=== PATIENT | female | born 1985 | race African-American/Black ===

== ENCOUNTER → 2016-10-03 | Outpatient (CLI) | payer OTHER, MEDICAID ==
[2016-10-03 14:20] LABS: ABSOLUTE LYMPHOCYTES (AUTO) 2.7 10^3/uL (0.5-4.7); ABSOLUTE MONOCYTES (AUTO) 0.5 10^3/uL (0.1-1.4); ABSOLUTE NEUT (AUTO) 6.8 10^3/uL (1.7-8.2); BASOPHILS % (AUTO) 0.4 % (0-2); EOSINOPHILS % (AUTO) 0.4 % (0-6); HEMATOCRIT 37.6 % (36.0-47.0); HEMOGLOBIN 12.3 g/dL (12.0-15.5); HGB HCT DIFFERENCE -0.7; LYMPHOCYTES % (AUTO) 26.4 % (13-45); MEAN CORPUSCULAR HEMOGLOBIN 26.8 pg (27.0-33.4); MEAN CORPUSCULAR HGB CONC 32.6 g/dL (32.0-36.0); MEAN CORPUSCULAR VOLUME 82 fl (80-97); RED BLOOD COUNT 4.57 10^6/uL (3.72-5.28); RED CELL DISTRIBUTION WIDTH 14.2 % (11.5-14.0); SEGMENTED NEUTROPHILS % (AUTO) 67.8 % (42-78); WHITE BLOOD COUNT 10.1 10^3/uL (4.0-10.5)
[2016-10-03 14:33] LABS: PARTIAL THROMBOPLASTIN TIME 28.5 SEC (23.5-35.8); PROTHROMBIN TIME 14.1 SEC (11.4-15.4)
[2016-10-03 14:45] LABS: ALANINE AMINOTRANSFERASE 26 U/L (9-52); ANION GAP 10 (5-19); ASPARTATE AMINO TRANSFERASE 18 U/L (14-36); BLOOD UREA NITROGEN 5 mg/dL (7-20); CARBON DIOXIDE 25 mmol/L (22-30); CHLORIDE 101 mmol/L (98-107); CREATININE RESULT 0.64 mg/dL (0.52-1.25); GLUCOSE 86 mg/dL (75-110); LDH 386 U/L (313-618); POTASSIUM 4.1 mmol/L (3.6-5.0); SODIUM 135.8 mmol/L (137-145); URIC ACID 5.1 mg/dL (2.5-6.2)
[2016-10-05 11:13] LABS: URINE CREATININE 118.8 mg/dL (16-327)
[2016-10-06 12:30] LABS: PROTEIN TOTAL UR 24HR 236.7 mg/24 hr (30.0-150.0)
== END ==
LOC: OD 12:43
PROVIDERS: ATTEND Nurse Practitioner Women's Health
DX: O10.011 Pre-existing essential hypertension complicating pregnancy, first trimester (principal)
CPT/HCPCS: 36415; 80048; 82570; 83615; 84156; 84450; 84460; 84550; 85025; 85610; 85730

== ENCOUNTER 2016-10-06 04:36 | Emergency (ER) | payer OTHER, MEDICAID ==
[2016-10-06 05:48] LABS: APPEARANCE,URINE SLIGHTLY-CLOUDY; BILIRUBIN,URINE NEGATIVE (NEGATIVE); GLUCOSE, URINE NEGATIVE (NEGATIVE); KETONES,URINE TRACE mg/dL (NEGATIVE); LEUKOCYTE ESTERASE,URINE NEGATIVE (NEGATIVE); NITRITE,URINE NEGATIVE (NEGATIVE); PROTEIN,URINE 100 mg/dL (NEGATIVE); URINE SPECIFIC GRAVITY 1.029; UROBILINOGEN,URINE NEGATIVE mg/dL (<2.0)
[2016-10-06] MEDS ORDERED: PROMETHAZINE HCL 25 MG TABLET PO ONE (06:02)
--- NOTE | 2016-10-06 06:44 | ER Document Report ---
ED General - General Chief Complaint: Nausea/Vomiting Stated Complaint: VOMITING/ Mode of Arrival: Ambulatory Information source: Patient Notes: 30-year-old female 4 para 3 who is 9 weeks presents with complaints of nausea vomiting. Patient notes she took Zofran at home and continues to vomit for the past 2 days. Denies any blood in her vomit, denies any diarrhea. Patient has had multiple similar episodes in the past with her previous pregnancies TRAVEL OUTSIDE OF THE [place] IN LAST 30 DAYS: No - HPI Onset: Yesterday Onset/Duration: Persistent Quality of pain: No pain Severity: Mild Pain Level: Denies Associated symptoms: Nausea, Vomiting Exacerbated by: Denies Relieved by: Denies Similar symptoms previously: Yes Recently seen / treated by doctor: No - Related Data Allergies/Adverse Reactions: hydrocodone bitartrate [From Vicodin] Allergy (Mild, Verified 10/06/16 04:43) VOMITING Past Medical History - Social History Smoking Status: Never Smoker Cigarette use (# per day): No Chew tobacco use (# tins/day): No Smoking Education Provided: No Frequency of alcohol use: None Drug Abuse: None Family History: DM, Hypertension Patient has suicidal ideation: No Patient has homicidal ideation: No - Past Medical History Cardiac Medical History: Reports: Hx Hypertension Denies: Hx Coronary Artery Disease, Hx Heart Attack Pulmonary Medical History: Denies: Hx Asthma, Hx Bronchitis, Hx COPD, Hx Pneumonia Neurological Medical History: Denies: Hx Cerebrovascular Accident, Hx Seizures Renal/ Medical History: Denies: Hx Peritoneal Dialysis Musculoskeltal Medical History: Denies Hx Arthritis Past Surgical History: Reports: Hx Section, Hx Dilation and Curettage. Denies: Hx Hysterectomy - Immunizations Hx Diphtheria, Pertussis, Tetanus Vaccination: Yes Review of Systems - Review of Systems Notes: REVIEW OF SYSTEMS: CONSTITUTIONAL : Denies fever, chills, or sweats. Denies recent illness. EENT: Denies eye, ear, throat, or mouth pain or symptoms. Denies nasal or sinus congestion or discharge. Denies throat, tongue, or mouth swelling or difficulty swallowing. CARDIOVASCULAR: Denies chest pain. Denies palpitations or racing or irregular heart beat. Denies ankle edema. RESPIRATORY: Denies cough, cold, or chest congestion. Denies shortness of breath, difficulty breathing, or wheezing. GASTROINTESTINAL: Admits nausea vomiting GENITOURINARY: Denies difficulty urinating, painful urination, burning, frequency, blood in urine, or discharge. FEMALE GENITOURINARY: Denies vaginal bleeding, heavy or abnormal periods, irregular periods. Denies vaginal discharge or odor. MUSCULOSKELETAL: Denies back or neck pain or stiffness. Denies joint pain or swelling. SKIN: Denies rash, lesions or sores. HEMATOLOGIC : Denies easy bruising or bleeding. LYMPHATIC: Denies swollen, enlarged glands. NEUROLOGICAL: Denies confusion or altered mental status. Denies passing out or loss of consciousness. Denies dizziness or lightheadedness. Denies headache. Denies weakness or paralysis or loss of use of either side. Denies problems with gait or speech. Denies sensory loss, numbness, or tingling. Denies seizures. PSYCHIATRIC: Denies anxiety or stress. Denies depression, suicidal ideation, or homicidal ideation. ALL OTHER SYSTEMS REVIEWED AND NEGATIVE. Dictation was performed using [employer] voice recognition software PHYSICAL EXAMINATION: GENERAL: Well-appearing, well-nourished and in no acute distress. HEAD: Atraumatic, normocephalic. EYES: Pupils equal round and reactive to light, extraocular movements intact, conjunctiva are normal. ENT: Nares patent, oropharynx clear without exudates. Moist mucous membranes. NECK: Normal range of motion, supple without lymphadenopathy LUNGS: Breath sounds clear to auscultation bilaterally and equal. No wheezes rales or rhonchi. HEART: Regular rate and rhythm without murmurs ABDOMEN: Soft, nontender, nondistended abdomen. No guarding, no rebound. No masses appreciated. Female : deferred Musculoskeletal: Normal range of motion, no pitting or edema. No cyanosis. NEUROLOGICAL: Cranial nerves grossly intact. Normal speech, normal gait. Normal sensory, motor exams PSYCH: Normal mood, normal affect. SKIN: Warm, Dry, normal turgor, no rashes or lesions noted. Physical Exam - Vital signs Vitals: Temp Pulse Resp BP Pulse Ox 98.6 F 79 18 163/62 H 100 10/06/16 04:39 10/06/16 04:39 10/06/16 04:39 10/06/16 04:39 10/06/16 04:39 Course - Re-evaluation Re-evalutation: 10/06/16 06:44 Physical examination noted no signs of dehydration, patient does have some protein in her urine with trace ketones. Otherwise she looks quite well. Patient is given Phenergan and will be reevaluated with oral hydration 10/06/16 07:17 Patient notes she has not vomited since receiving Phenergan admits significant relief in symptoms. I will send her home with oral and suppository Patient has follow-up with [facility] next week denies any vaginal bleeding or discharge or abdominal pain After performing a Medical Screening Examination, I estimate there is LOW risk for ACUTE APPENDICITIS, BOWEL OBSTRUCTION, ACUTE CHOLECYSTITIS, PERFORATED DIVERTICULITIS, INCARCERATED HERNIA, PANCREATITIS, PELVIC INFLAMMATORY DISEASE, PERFORATED ULCER, ECTOPIC , or TUBO-OVARIAN ABSCESS, thus I consider the discharge disposition reasonable. Also, there is no evidence or peritonitis , sepsis, or toxicity. The patient and I have discussed the diagnosis and risks , and we agree with discharging home with close follow-up with the understanding that symptoms and presentations can change. We also discussed returning to the Emergency Department immediately if new or worsening symptoms occur. We have discussed the symptoms which are most concerning (e.g., bloody stool, fever, changing or worsening pain, vomiting) that necessitate immediate return. - Vital Signs Vital signs: Temp Pulse Resp BP Pulse Ox 98.6 F 79 18 163/62 H 100 10/06/16 04:41 10/06/16 04:41 10/06/16 04:41 10/06/16 04:41 10/06/16 04:41 - Laboratory Laboratory results interpreted by me: 10/06/16 05:17 Urine Protein 100 H Urine Ketones TRACE H Discharge - Discharge Clinical Impression: Vomiting affecting HTN (hypertension) Qualifiers: Hypertension type: essential hypertension Qualified Code(s): I10 - Essential ( primary) hypertension Condition: Stable Disposition: HOME, SELF-CARE Instructions: Antinausea Medication ([facility]) Prescriptions: Promethazine HCl [Phenergan 25 mg Tablet] 1 - 2 tab PO Q6H PRN #30 tablet PRN Reason: Promethazine HCl 25 mg RC Q8 #20 supp.rect Forms: Elevated Blood Pressure Referrals: HERIBERTO WINTERS MD [Primary Care Provider] - Follow up tomorrow
[2016-10-06 07:29] VITALS: BP 160/60
== END 2016-10-06 07:30 | disposition home or self-care (01) ==
LOC: ER 04:36
DX: O21.9 Vomiting of pregnancy, unspecified (principal); O10.911 Unspecified pre-existing hypertension complicating pregnancy, first trimester; Z3A.09 9 weeks gestation of pregnancy
CPT/HCPCS: 81001; 99283

== ENCOUNTER 2017-03-24 16:10 | Outpatient (CLI) | payer OTHER, MEDICAID ==
[2017-03-24 17:02] LABS: ABSOLUTE LYMPHOCYTES (AUTO) 1.9 10^3/uL (0.5-4.7); ABSOLUTE MONOCYTES (AUTO) 0.3 10^3/uL (0.1-1.4); ABSOLUTE NEUT (AUTO) 5.8 10^3/uL (1.7-8.2); BASOPHILS % (AUTO) 0.2 % (0-2); EOSINOPHILS % (AUTO) 0.2 % (0-6); HEMATOCRIT 33.2 % (36.0-47.0); HEMOGLOBIN 10.9 g/dL (12.0-15.5); HGB HCT DIFFERENCE -0.5; LYMPHOCYTES % (AUTO) 23.4 % (13-45); MEAN CORPUSCULAR HEMOGLOBIN 26.2 pg (27.0-33.4); MEAN CORPUSCULAR HGB CONC 32.9 g/dL (32.0-36.0); MEAN CORPUSCULAR VOLUME 80 fl (80-97); RED BLOOD COUNT 4.17 10^6/uL (3.72-5.28); RED CELL DISTRIBUTION WIDTH 14.2 % (11.5-14.0); SEGMENTED NEUTROPHILS % (AUTO) 72.2 % (42-78)
[2017-03-24 17:21] LABS: ALANINE AMINOTRANSFERASE 19 U/L (9-52); ALBUMIN 3.5 g/dL (3.5-5.0); ALKALINE PHOSPHATASE 104 U/L (38-126); ANION GAP 12 (5-19); ASPARTATE AMINO TRANSFERASE 16 U/L (14-36); BILIRUBIN,DIRECT 0.2 mg/dL (0.0-0.4); BILIRUBIN,TOTAL 0.3 mg/dL (0.2-1.3); BLOOD UREA NITROGEN 4 mg/dL (7-20); CALCIUM 8.9 mg/dL (8.4-10.2); CARBON DIOXIDE 18 mmol/L (22-30); CHLORIDE 105 mmol/L (98-107); CREATININE RESULT 0.57 mg/dL (0.52-1.25); GLUCOSE 137 mg/dL (75-110); LDH 309 U/L (313-618); POTASSIUM 3.8 mmol/L (3.6-5.0); SODIUM 135.2 mmol/L (137-145); TOTAL PROTEIN 7.1 g/dL (6.3-8.2); URIC ACID 5.2 mg/dL (2.5-6.2)
[2017-03-24 17:31] LABS: APPEARANCE,URINE SLIGHTLY-CLOUDY; BILIRUBIN,URINE NEGATIVE (NEGATIVE); GLUCOSE, URINE NEGATIVE (NEGATIVE); KETONES,URINE NEGATIVE (NEGATIVE); LEUKOCYTE ESTERASE,URINE NEGATIVE (NEGATIVE); NITRITE,URINE NEGATIVE (NEGATIVE); PROTEIN,URINE 30 mg/dL (NEGATIVE); URINE SPECIFIC GRAVITY 1.026
[2017-03-24 17:46] LABS: URINE CREATININE 238.3 mg/dL (16-327); URINE PROTEIN 6.2 mg/dL (<12)
[2017-03-24 17:47] LABS: URINE BARBITURATES SCREEN NEGATIVE; URINE METHADONE SCREEN NEGATIVE; URINE OPIATES LOW NEGATIVE; URINE PHENCYCLIDINE SCREEN NEGATIVE
--- NOTE | 2017-03-24 18:45 | Non Stress Test Report ---
Non Stress Test Datetime Report Generated by CPN: 03/24/2017 18:45 DEMOGRAPHIC EGA NST: 34.0 INDICATION Indication for Study: Ordered by Provider MONITORING Monitor Explained: Monitor Explained; Test Explained; Patient Verbalized Understanding Time on Monitor: 03/24/2017 18:00 Time off Monitor: 03/24/2017 18:20 NST Duration: 20 NST INTERVENTIONS NST Interventions: PO Hydration; Reposition Patient Physician Notified NST: Dr Neilsen BABY A: [id number] BABY A Movement : Present Contraction Frequency : none FHR Baseline : 140 Accelerations : 15X15 Decelerations : None Variability : Moderate 6-25bpm NST Review: Meets Criteria for Reactive NST NST Review and Verified By : Tim Bautista RNC NST Results: Reactive NST REPORT Report Trigger: Send Report
== END 2017-03-24 18:30 | disposition home or self-care (01) ==
LOC: LC 16:10
PROVIDERS: ATTEND Specialist
PROC: 4A1HXCZ Monitoring of Products of Conception, Cardiac Rate, External Approach (ICD-10-PCS; principal; 2017-03-24)
DX: O13.3 Gestational [pregnancy-induced] hypertension without significant proteinuria, third trimester (principal); Z3A.34 34 weeks gestation of pregnancy
CPT/HCPCS: 36415; 59025; 80053; 80307; 81001; 82570; 83615; 84156; 84550; 85025

== ENCOUNTER 2017-04-03 00:32 | Emergency (ER) | payer OTHER, MEDICAID ==
[2017-04-03] MEDS ORDERED: LIDOCAINE 5% (700 MG) TRANSDERMAL ADH..PATCH TP ONE (01:57)
[2017-04-03] MEDS ORDERED: ACETAMINOPHEN 325 MG TABLET PO ONE (01:57)
--- NOTE | 2017-04-03 01:58 | ER Document Report ---
ED General - General Chief Complaint: Fall Stated Complaint: FALL/LEG PAIN Time Seen by Provider: 04/03/17 01:45 Notes: Patient is a 31-year-old female currently 36 weeks who presents after having a mechanical trip and fall onto her right hip several hours prior to arrival. Since that time she notes that she has had a moderate to severe bilateral low back pain. The pain is described as a dull, constant, throbbing pain. She has not tried anything to improve the pain. Moving worsens the pain. She denies any abdominal trauma. No vaginal bleeding. Active movements continues to be felt. She has not seen a primary doctor regarding today's concerns. Denies any history of similar symptoms in the past. Denies hitting her head or neck. She denies any difficulty with ambulation. No right hip pain which is the location of impact for her fall. TRAVEL OUTSIDE OF THE [place] IN LAST 30 DAYS: No - Related Data Allergies/Adverse Reactions: hydrocodone bitartrate [From Vicodin] Adverse Reaction (Mild, Verified 03/24/17 16:34) VOMITING Past Medical History - General Information source: Patient - Social History Smoking Status: Never Smoker Frequency of alcohol use: None Drug Abuse: None Lives with: Family Family History: DM, Hypertension - Past Medical History Cardiac Medical History: Reports: Hx Hypertension Denies: Hx Coronary Artery Disease, Hx Heart Attack Pulmonary Medical History: Denies: Hx Asthma, Hx Bronchitis, Hx COPD, Hx Pneumonia Neurological Medical History: Denies: Hx Cerebrovascular Accident, Hx Seizures Renal/ Medical History: Denies: Hx Peritoneal Dialysis Musculoskeltal Medical History: Denies Hx Arthritis Past Surgical History: Reports: Hx Section, Hx Dilation and Curettage. Denies: Hx Hysterectomy - Immunizations Hx Diphtheria, Pertussis, Tetanus Vaccination: Yes Review of Systems - Review of Systems Notes: Constitutional: Negative for fever. HENT: Negative for sore throat. Eyes: Negative for visual changes. Cardiovascular: Negative for chest pain. Respiratory: Negative for shortness of breath. Gastrointestinal: Negative for abdominal pain, vomiting or diarrhea. Genitourinary: Negative for dysuria. Musculoskeletal: Positive for back pain. Skin: Negative for rash. Neurological: Negative for headaches, weakness or numbness. 10 point ROS negative except as marked above and in HPI. Physical Exam - Vital signs Vitals: Temp Pulse Resp BP Pulse Ox 98.0 F 78 18 133/64 H 99 04/03/17 00:37 04/03/17 00:37 04/03/17 00:37 04/03/17 00:37 04/03/17 00:37 Interpretation: Hypertensive Notes: PHYSICAL EXAMINATION: GENERAL: Well-appearing, well-nourished and in no acute distress. HEAD: Atraumatic, normocephalic. EYES: Pupils equal round and reactive to light, extraocular movements intact, sclera anicteric, conjunctiva are normal. ENT: nares patent, oropharynx clear without exudates. Moist mucous membranes. NECK: Normal range of motion, supple without lymphadenopathy LUNGS: Breath sounds clear to auscultation bilaterally and equal. No wheezes rales or rhonchi. HEART: Regular rate and rhythm without murmurs ABDOMEN: Gravid uterus, soft, nontender, normoactive bowel sounds. No guarding , no rebound. No masses appreciated. EXTREMITIES: Normal range of motion, no pitting or edema. No cyanosis. Back: No midline spinal tenderness, step-offs or deformities. Pain on palpation of the bilateral sergio-Lumbar spinal region NEUROLOGICAL: 5 out of 5 strength both distally and proximally bilateral lower extremities. 2+ patellar reflexes bilaterally. No clonus. Sensation grossly intact in the bilateral lower extremities. Patient is able to ambulate without difficulty. PSYCH: Normal mood, normal affect. SKIN: Warm, Dry, normal turgor, no rashes or lesions noted. Course - Re-evaluation Re-evalutation: 04/03/17 01:55 Patient presents after having a mechanical fall onto her right hip several hours prior to arrival. She is 36 weeks . Bedside ultrasound shows appropriate movement, cardiac activity appropriate 146 bpm. Patient has no difficulty with ambulation and is actually not complaining of any significant right hip pain. She is rather complaining of diffuse low back pain. No rapid progression of symptoms, systemic symptoms including fevers, chills, weight loss, history of recent bacterial infection, bilateral symptoms, numbness, weakness, difficulty walking, urinary retention or bowel incontinence , personal history of cancer, immunosuppression, diabetes, known AAA, or history of IV drug use. Exam is without point tenderness over vertebral bodies and patient has symmetric and intact lower extremity strength, sensation, and reflexes without clonus. 2+ symmetric medial malleolar and dorsalis pedis pulses Based on history and physical, I have a very low suspicion of a concerning etiology of pain including epidural compression syndrome, spinal infection, transverse myelitis, malignancy, abdominal aortic aneurysm, renal colic, acute lower extremity claudication, neurogenic claudication, ankylosing spondylitis, or other intra-abdominal process. Due to absence of concerning risk factors in history and physical as well as absence of rapidly progressive, severe, or bilateral symptoms, will defer imaging at this point. Suspect likely musculoskeletal injury in the setting of a mechanical fall. At this time will discharge with return precautions and follow-up recommendations. Verbal discharge instructions given a the bedside and opportunity for questions given. Medication warnings reviewed. Patient is in agreement with this plan and has verbalized understanding of return precautions and the need for primary care follow-up in the next 24-72 hours. - Vital Signs Vital signs: Temp Pulse Resp BP Pulse Ox 98.0 F 78 18 133/64 H 99 04/03/17 00:37 04/03/17 00:37 04/03/17 00:37 04/03/17 00:37 04/03/17 00:37 Discharge - Discharge Clinical Impression: Fall Qualifiers: Encounter type: initial encounter Qualified Code(s): W19.XXXA - Unspecified fall, initial encounter Low back pain Qualifiers: Chronicity: acute Back pain laterality: bilateral Sciatica presence: without sciatica Qualified Code(s): M54.5 - Low back pain Condition: Good Disposition: HOME, SELF-CARE Additional Instructions: You have been seen in the Emergency Department (ED) today for back pain. Your workup and exam have not shown any acute abnormalities and you are likely suffering from muscle strain or possible problems with your discs, but there is no treatment that will fix your symptoms at this time. Please take Tylenol 1000 mg every 6 hours as needed for pain. You should also purchase a local lidocaine cream such as "aspercreme with lidocaine" and use per bottle instructions to the affected area. Apply heat to the area as often as you are able. Continue to keep active and avoid prolonged periods of bed rest. Please follow up with your doctor as soon as possible regarding today's ED visit and your back pain. Return to the ED for worsening back pain, fever, weakness or numbness of either leg, or if you develop either (1) an inability to urinate or have bowel movements, or (2) loss of your ability to control your bathroom functions (if you start having "accidents"), or if you develop other new symptoms that concern you.concern you. Referrals: PRASANNA LEWIS MD [Primary Care Provider] - Follow up as needed
[2017-04-03 04:00] VITALS: BP 133/81
== END 2017-04-03 02:15 | disposition home or self-care (01) ==
LOC: ER 00:32
DX: M54.5 Low back pain (principal); M25.551 Pain in right hip; M79.604 Pain in right leg; Z3A.36 36 weeks gestation of pregnancy; W19.XXXA Unspecified fall, initial encounter
CPT/HCPCS: 99283

== ENCOUNTER 2017-04-17 12:33 | Outpatient (CLI) | payer OTHER, MEDICAID ==
[2017-04-17 13:19] LABS: APPEARANCE,URINE SLIGHTLY-CLOUDY; BILIRUBIN,URINE NEGATIVE (NEGATIVE); GLUCOSE, URINE NEGATIVE (NEGATIVE); KETONES,URINE NEGATIVE (NEGATIVE); LEUKOCYTE ESTERASE,URINE NEGATIVE (NEGATIVE); NITRITE,URINE NEGATIVE (NEGATIVE); PROTEIN,URINE 30 mg/dL (NEGATIVE); UROBILINOGEN,URINE NEGATIVE mg/dL (<2.0)
[2017-04-17 13:46] LABS: URINE BARBITURATES SCREEN NEGATIVE; URINE METHADONE SCREEN NEGATIVE; URINE OPIATES LOW NEGATIVE; URINE PHENCYCLIDINE SCREEN NEGATIVE
== END 2017-04-17 14:04 | disposition home or self-care (01) ==
LOC: LC 12:33
PROVIDERS: ATTEND Obstetrics & Gynecology
PROC: 4A1HXCZ Monitoring of Products of Conception, Cardiac Rate, External Approach (ICD-10-PCS; principal; 2017-04-17)
DX: O36.8130 Decreased fetal movements, third trimester, not applicable or unspecified (principal); O46.93 Antepartum hemorrhage, unspecified, third trimester; Z3A.37 37 weeks gestation of pregnancy
CPT/HCPCS: 59025; 80307; 81005; 82962

== ENCOUNTER 2017-04-28 05:17 | Inpatient (IN) | payer OTHER, MEDICAID ==
[2017-04-27 11:10] LABS: APPEARANCE,URINE SLIGHTLY-CLOUDY; BILIRUBIN,URINE NEGATIVE (NEGATIVE); GLUCOSE, URINE >=500 mg/dL (NEGATIVE); KETONES,URINE NEGATIVE (NEGATIVE); LEUKOCYTE ESTERASE,URINE NEGATIVE (NEGATIVE); NITRITE,URINE NEGATIVE (NEGATIVE); PROTEIN,URINE 30 mg/dL (NEGATIVE); URINE SPECIFIC GRAVITY 1.025; UROBILINOGEN,URINE NEGATIVE mg/dL (<2.0)
[2017-04-27 11:11] LABS: ABSOLUTE LYMPHOCYTES (AUTO) 1.5 10^3/uL (0.5-4.7); ABSOLUTE MONOCYTES (AUTO) 0.4 10^3/uL (0.1-1.4); ABSOLUTE NEUT (AUTO) 5.8 10^3/uL (1.7-8.2); BASOPHILS % (AUTO) 0.1 % (0-2); EOSINOPHILS % (AUTO) 0.3 % (0-6); HEMATOCRIT 34.9 % (36.0-47.0); HEMOGLOBIN 11.6 g/dL (12.0-15.5); HGB HCT DIFFERENCE -0.1; LYMPHOCYTES % (AUTO) 19.3 % (13-45); MEAN CORPUSCULAR HEMOGLOBIN 26.5 pg (27.0-33.4); MEAN CORPUSCULAR HGB CONC 33.2 g/dL (32.0-36.0); MEAN CORPUSCULAR VOLUME 80 fl (80-97); MONOCYTES % (AUTO) 4.8 % (3-13); RED BLOOD COUNT 4.37 10^6/uL (3.72-5.28); RED CELL DISTRIBUTION WIDTH 14.7 % (11.5-14.0); SEGMENTED NEUTROPHILS % (AUTO) 75.5 % (42-78); WHITE BLOOD COUNT 7.7 10^3/uL (4.0-10.5)
[2017-04-27 11:28] LABS: URINE BARBITURATES SCREEN NEGATIVE; URINE METHADONE SCREEN NEGATIVE; URINE OPIATES LOW NEGATIVE; URINE PHENCYCLIDINE SCREEN NEGATIVE
[~2017-04-28 05:17] MED LIST: CEFAZOLIN 2 GM/D5W RTU 2 GM/50 ML RTUPB IV PRN; LACTATED RINGERS 1000 ML IV PRN; LIDOCAINE 0.5% INJ-PF (5 MG/ML) 50 ML SDV SUBCUT PRN; RINGERS SOLUTION,LACTATED 1,000 ML IV PRN
[2017-04-28] MEDS ORDERED: FENTANYL CITRATE INJ/PF 100 MCG/2 ML AMPUL ONE (07:36)
[2017-04-28] MEDS ORDERED: OXYTOCIN/NORMAL SALINE 20 UNIT/1,000 ML RTUINJ ONE ×2 (07:36→09:30)
[2017-04-28] MEDS ORDERED: ONDANSETRON HCL INJ/PF 4 MG/2 ML SDV ONE (07:36)
[2017-04-28] MEDS ORDERED: OXYTOCIN 10 UNIT/ML VIAL ONE (07:36)
[2017-04-28] MEDS ORDERED: MIDAZOLAM 2 MG/2 ML INJ ONE (07:37)
[2017-04-28] MEDS ORDERED: MORPHINE SULFATE 10 MG/ML INJ ONE ×2 (07:37→10:28)
[2017-04-28] MEDS ORDERED: OXYCODONE-ACETAMINOPHEN 5-325 MG TABLET PO PRN ×3 (08:21→13:35)
[2017-04-28] MEDS ORDERED: MEPERIDINE HCL/PF INJ 25 MG/1 ML DISP.SYRIN IV PRN (08:21)
[2017-04-28] MEDS ORDERED: DIPHENHYDRAMINE HCL 50 MG/ML VIAL IV PRN (08:21)
[2017-04-28] MEDS ORDERED: FENTANYL CITRATE INJ/PF 100 MCG/2 ML AMPUL IV PRN ×3 (08:21)
[2017-04-28] MEDS ORDERED: MORPHINE SULFATE 10 MG/ML INJ IV PRN (08:21)
[2017-04-28] MEDS ORDERED: PROMETHAZINE HCL INJ 25 MG/1 ML VIAL IV PRN ×2 (08:21)
--- NOTE | 2017-04-28 08:51 | Non Stress Test Report ---
Non Stress Test Datetime Report Generated by CPN: 04/28/2017 08:51 DEMOGRAPHIC EGA NST: 37.3 INDICATION Indication for Study: Decreased Movement; Ordered by Provider MONITORING Monitor Explained: Monitor Explained; Test Explained; Patient Verbalized Understanding Time on Monitor: 04/17/2017 13:13 Time off Monitor: 04/17/2017 13:49 NST Duration: 36 NST INTERVENTIONS NST Interventions: None Physician Notified NST: K Schulte CNM BABY A: [id number] BABY A Movement : Decreased Contraction Frequency : 0 FHR Baseline : 150 Accelerations : 15X15 Decelerations : None Variability : Moderate 6-25bpm NST Review: Meets Criteria for Reactive NST NST Review and Verified By : ALEXA SPEAR RN NST Results: Reactive NST COMMENTS NST Comments: PT had BPP at [facility] today 8/8 NST REPORT Report Trigger: Send Report
[2017-04-28] MEDS ORDERED: PROMETHAZINE HCL INJ 25 MG/1 ML VIAL ONE (10:38)
[2017-04-28] MEDS ORDERED: HYDROMORPHONE HCL INJ/PF 2 MG/ML AMPULE ONE (11:44)
[2017-04-28] MEDS ORDERED: HYDROMORPHONE HCL INJ/PF 2 MG/ML AMPULE IV PRN (13:34)
[2017-04-28] MEDS ORDERED: OXYCODONE-ACETAMINOPHEN 5-325 MG TABLET ONE (13:35)
[2017-04-28] MEDS ORDERED: OXYTOCIN/NORMAL SALINE 20 UNIT/1,000 ML RTUINJ INJ PRN (13:42)
[2017-04-28] MEDS ORDERED: PROMETHAZINE HCL INJ 25 MG/1 ML VIAL IM PRN (14:00)
[2017-04-28] MEDS ORDERED: MEASLES,MUMPS&RUBELLA VACC/PF 0.5 ML VIAL SUBCUT PRN (14:00)
[2017-04-28] MEDS ORDERED: RINGERS SOLUTION,LACTATED 1,000 ML IV SCH (14:00)
[2017-04-28] MEDS ORDERED: SIMETHICONE 80 MG TAB.CHEW PO PRN (14:00)
[2017-04-28] MEDS ORDERED: DIPH/PERTUSS(ACELL)/TETANUS VAC/PF 0.5 ML SYR (>=10YO) IM PRN (14:00)
[2017-04-28] MEDS ORDERED: ACETAMINOPHEN 325 MG TABLET PO PRN (14:00)
[2017-04-28] MEDS: IBUPROFEN 800 MG TABLET PO SCH (17:46)
[2017-04-28] MEDS: DOCUSATE SODIUM 100 MG CAPSULE PO SCH (17:47)
[2017-04-28] MEDS: OXYCODONE-ACETAMINOPHEN 5-325 MG TABLET PO PRN (21:28)
[2017-04-29] MEDS: IBUPROFEN 800 MG TABLET PO SCH ×4 (00:44→17:08)
[2017-04-29] MEDS: OXYCODONE-ACETAMINOPHEN 5-325 MG TABLET PO PRN ×4 (04:44→23:40)
[2017-04-29 07:46] LABS: HEMATOCRIT 30.1 % (36.0-47.0); HEMOGLOBIN 9.9 g/dL (12.0-15.5); HGB HCT DIFFERENCE -0.4; MEAN CORPUSCULAR HEMOGLOBIN 26.6 pg (27.0-33.4); MEAN CORPUSCULAR HGB CONC 32.7 g/dL (32.0-36.0); MEAN CORPUSCULAR VOLUME 82 fl (80-97); RED CELL DISTRIBUTION WIDTH 14.7 % (11.5-14.0); WHITE BLOOD COUNT 8.9 10^3/uL (4.0-10.5)
[2017-04-29] MEDS: PRENATAL VITAMIN W-O CA NO5/FE FUMARATE/FA CAPSULE PO SCH (10:06)
[2017-04-29] MEDS: DOCUSATE SODIUM 100 MG CAPSULE PO SCH ×2 (10:06→17:08)
--- NOTE | 2017-04-29 10:17 | PDOC PROGRESS REPORT ---
Subjective-OB Subjective: Post Delivery Day: 1 31 year old. Denies any needs at this time, lochia is stable, pain well controlled, voiding without difficulty, passing gas, tolerating diet. Physical Exam (OB) Vital Signs: Temp Pulse Resp BP Pulse Ox 98.0 F 93 16 136/93 H 100 04/29/17 07:54 04/29/17 07:54 04/29/17 07:54 04/29/17 07:54 04/29/17 07:54 Intake & Output 04/28/17 04/29/17 04/30/17 06:59 06:59 06:59 Intake Total 875 Output Total 1900 Balance -1025 Weight 127.3 kg - PIH/Pre-Eclampsia DTR's: 2 + Clonus: Negative Headache: Absent Epigastric Pain: No Visual Changes: No - Dressing Removed: No Incision: Dressing - Lochia Lochia Amount: Small 10-25 ml Lochia Color: Rubra/Red - Abdomen Description: Soft, Round Hernia Present: No Fundal Description: Firm, Midline Fundal Height: u/u - u/2 Objective-Diagnostic Laboratory: 04/29/17 07:39 04/29/17 07:39 WBC 8.9 RBC 3.70 L Hgb 9.9 L Hct 30.1 L MCV 82 MCH 26.6 L MCHC 32.7 RDW 14.7 H Plt Count 133 L Assessment and Plan(PN) - Assessment and Plan (1) Status post repeat low transverse section Is this a current diagnosis for this admission?: Yes Plan: routine post op care (2) Obesity affecting Qualifiers: Trimester: third trimester Qualified Code(s): O99.213 - Obesity complicating , third trimester Is this a current diagnosis for this admission?: Yes (3) GDM, class A1 Is this a current diagnosis for this admission?: Yes Plan: yearly follow up (4) History of depression Is this a current diagnosis for this admission?: Yes Plan: d/c planning, close f/u (5) Acute blood loss anemia Is this a current diagnosis for this admission?: Yes Plan: routine pp care ferrous sulfate - Time Spent with Patient Time with patient: Less than 15 minutes Critical Time spent with patient: Less than 15 minutes Medications reviewed and adjusted accordingly: Yes - Disposition Anticipated Discharge: Home Within: within 24 hours
[2017-04-30] MEDS: IBUPROFEN 800 MG TABLET PO SCH ×2 (00:39→05:24)
[2017-04-30] MEDS: OXYCODONE-ACETAMINOPHEN 5-325 MG TABLET PO PRN (08:13)
--- NOTE | 2017-04-30 09:09 | PDOC DISCHARGE SUMMARY ---
Final Diagnosis Discharge Date: 04/30/17 - Final Diagnosis (1) Status post repeat low transverse section Is this a current diagnosis for this admission?: Yes (2) Obesity affecting Is this a current diagnosis for this admission?: Yes (3) GDM, class A1 Is this a current diagnosis for this admission?: Yes (4) History of depression Is this a current diagnosis for this admission?: Yes (5) Acute blood loss anemia Is this a current diagnosis for this admission?: Yes Discharge Data - Discharge Medication Home Medications: Metformin HCl [Glucophage] 500 mg PO BID PRN 10/07/14 Docusate Sodium [Colace 100 mg Capsule] 100 mg PO BID #60 capsule 04/30/17 Ferrous Sulfate [Albafort] 325 mg PO BID #60 tablet 04/30/17 Ibuprofen [Motrin 800 mg Tablet] 800 mg PO Q6 #60 tablet 04/30/17 Oxycodone HCl/Acetaminophen [Percocet 5-325 mg Tablet] 2 tab PO Q4HP PRN #30 tablet 04/30/17 Gestational Age: 39 Reason(s) for Admission: Ceasarean Section-Repeat Procedures: NST Intrapartum Procedure(s): : Low Cervical, Transverse, Tubal Ligation - Data Baby 1 Female at 1 minute: 8 at 5 minutes: 9 Weight: 3635 kg Home with Mother: Yes Complications: No - Diagnosis Test Laboratory: Temp Pulse Resp BP Pulse Ox 97.9 F 92 16 120/75 98 04/30/17 07:38 04/30/17 07:38 04/30/17 07:38 04/30/17 07:38 04/30/17 07:38 04/27/17 04/27/17 04/29/17 10:16 10:20 07:39 RBC 4.37 3.70 L Hgb 11.6 L 9.9 L Hct 34.9 L 30.1 L Urine Opiates Screen NEGATIVE - Discharge information/Instructions Discharge Activity: Activity As Tolerated, No Lifting Over 10 Pounds, Pelvic Rest, No tub bath Discharge Diet: Regular Disposition: HOME, SELF-CARE Follow up with: [facility] in: 1, Weeks
[2017-04-30] MEDS: PRENATAL VITAMIN W-O CA NO5/FE FUMARATE/FA CAPSULE PO SCH (10:21)
[2017-04-30] MEDS: DOCUSATE SODIUM 100 MG CAPSULE PO SCH (10:21)
[2017-04-30 12:01] VITALS: BP 131/78
--- NOTE | 2017-06-11 09:48 | OPERATIVE REPORT E ---
Operative Report NAME: DMITRY PASTOR : 1985 AGE: 31Y DATE OF SURGERY: 04/28/2017 ROOM: 210 PREOPERATIVE DIAGNOSES: 1. A 39-week intrauterine . 2. History of section x3, for repeat. POSTOPERATIVE DIAGNOSES: 1. A 39-week intrauterine . 2. History of section x3, for repeat. SURGEON: Irwin Kitchen D.O. CREDIT COLLECTIONS SPECIALIST: None. PROCEDURE: Repeat low-transverse section. ANESTHESIA: Spinal. COMPLICATIONS: None. ESTIMATED BLOOD LOSS: 600 mL. PATHOLOGY: Placenta. FINDINGS: 1. Viable female infant at 8:14 a.m. on April 28, 2017. 8 at 1 and 9 at 5. 2. Normal appearing bilateral fallopian tubes and ovaries. PROCEDURE: Patient was taken to the operating room where her spinal anesthesia was administered. Once this was done, she was placed in the dorsal supine position with a leftward tilt upon the operating room table. She was then prepped and draped in normal sterile fashion. A scalpel was then used to make a Pfannenstiel skin incision. The skin incision was carried down through the subcutaneous tissue to the layer of the fascia. Fascia was then incised in the midline. The fascial incision was then extended bilaterally using the Bovie cautery. The superior fascial edge was gasped by Galina clamps, elevated, and the rectus muscles dissected off sharply and bluntly. Attention was then turned to the inferior fascial edge which was grasped by Galina clamps, elevated and the rectus muscles were dissected off sharply and bluntly. The rectus muscles were then in the midline, perineum identified, and entered bluntly with the surgeon's hands. A bladder blade was inserted. A scalpel was then used to make a low transverse hysterotomy incision. The infant was found to be in the cephalad position and delivered through this incision without difficulty and atraumatically. The nose and mouth were suctioned. Cord was clamped and cut. The was handed off to the awaiting nurses. The placenta was then manually removed from the uterus. The uterus was then exteriorized and cleared of all clots and debris. The hysterotomy incision was then reapproximated using 2 layers of 1-0 Vicryl in a running locking fashion. Following closure of the second layer, excellent hemostasis was noted. The uterus was then returned to the abdomen. Again, hysterotomy incision was reinspected and found to have excellent hemostasis. The rectus muscles were then reapproximated using 1-0 Vicryl interrupted sutures. The fascia was then closed using 1-0 Vicryl in a running nonlocking fashion. The subcutaneous space was made hemostatic using Bovie cautery. The skin was closed with absorbable sandra, covered with an OpSite, and with a pressure dressing. At this point in time, the procedure was terminated. All sponge, lap, and needle counts were correct x2. Patient tolerated the procedure well. Patient was taken to the recovery room in stable condition. DICTATING PHYSICIAN: Irwin Kitchen DO [id number] PHY#: [id number] ID: [id number] JOB#: [id number] ACCT: [id number] cc:Irwin Kitchen D.O. >
== END 2017-04-30 12:12 | disposition home or self-care (01) | DRG 765 ==
LOC: 2N 05:17 → 2S 05:17 → UNDOADMIN 05:17
PROVIDERS: ADMIT Obstetrics & Gynecology; ATTEND Obstetrics & Gynecology
PROC: 10D00Z1 Extraction of Products of Conception, Low, Open Approach (ICD-10-PCS; principal; 2017-04-28 07:45)
DX: O34.211 Maternal care for low transverse scar from previous cesarean delivery (principal); O24.12 Pre-existing type 2 diabetes mellitus, in childbirth; O10.92 Unspecified pre-existing hypertension complicating childbirth; Z68.42 Body mass index [BMI] 45.0-49.9, adult; E11.69 Type 2 diabetes mellitus with other specified complication; Z37.0 Single live birth; Z3A.39 39 weeks gestation of pregnancy; O99.214 Obesity complicating childbirth; E66.8 Other obesity; Z79.84 Long term (current) use of oral hypoglycemic drugs
CPT/HCPCS: 1961; 36415; 59025; 80307; 81001; 82962; 85025; 85027; 86850; 86900; 86901; 94799; J0690; J1170; J2250; J2270; J2405; J2550; J2590; J3010; J7120

== ENCOUNTER 2017-06-17 09:02 | Emergency (ER) | payer OTHER, MEDICAID ==
[2017-06-17] MEDS ORDERED: IBUPROFEN 800 MG TABLET PO ONE (09:22)
[2017-06-17] MEDS ORDERED: ONDANSETRON 4 MG TAB.RAPDIS PO ONE (10:09)
[2017-06-17] MEDS ORDERED: PENICILLIN G BENZATHINE 1.2 MILLION UNIT/2 ML DISP.SYRIN IM ONE (10:54)
--- NOTE | 2017-06-17 10:54 | ER Document Report ---
ED General - General Chief Complaint: Nausea/Vomiting Stated Complaint: FLU LIKE SYMPTOMS Time Seen by Provider: 06/17/17 09:18 Mode of Arrival: Ambulatory Information source: Patient Notes: 31-year-old female presents with complaints of one-week duration of not feeling well. Patient notes over the past day she has had fevers has been having sore throat. Patient is unsure of any sick contacts. Patient denies any current vomiting but has been nauseous and vomited in the past week TRAVEL OUTSIDE OF THE [place] IN LAST 30 DAYS: No - HPI Onset: Last week Onset/Duration: Persistent Quality of pain: Achy Severity: Mild Pain Level: 1 Associated symptoms: Fever, Nausea, Vomiting, Sore throat Exacerbated by: Food Relieved by: Denies Similar symptoms previously: No Recently seen / treated by doctor: No - Related Data Allergies/Adverse Reactions: No Known Allergies Allergy (Unverified 06/17/17 09:55) Home Medications: Current Home Medications No Home Medications 06/17/17 [History] Past Medical History - Social History Smoking Status: Never Smoker Cigarette use (# per day): No Chew tobacco use (# tins/day): No Smoking Education Provided: No Frequency of alcohol use: None Drug Abuse: None Family History: DM, Hypertension - Past Medical History Cardiac Medical History: Reports: Hx Hypertension - no meds Denies: Hx Coronary Artery Disease, Hx Heart Attack, Hx Heart Murmur Pulmonary Medical History: Denies: Hx Asthma, Hx Bronchitis, Hx COPD, Hx Pneumonia Neurological Medical History: Denies: Hx Cerebrovascular Accident, Hx Seizures Endocrine Medical History: Denies: Hx Hyperthyroidism, Hx Hypothyroidism Renal/ Medical History: Reports: Hx Ovarian Cysts. Denies: Hx Peritoneal Dialysis, Hx Pelvic Inflammatory Disease Malignancy Medical History: Denies: Hx Breast Cancer, Hx Cervical Cancer, Hx Ovarian Cancer Musculoskeltal Medical History: Denies Hx Arthritis Past Surgical History: Reports: Hx Section, Hx Dilation and Curettage. Denies: Hx Hysterectomy - Immunizations Hx Diphtheria, Pertussis, Tetanus Vaccination: Yes Review of Systems - Review of Systems Notes: REVIEW OF SYSTEMS: CONSTITUTIONAL : Admits to fever EENT: Admits to sore throat CARDIOVASCULAR: Denies chest pain. Denies palpitations or racing or irregular heart beat. Denies ankle edema. RESPIRATORY: Denies cough, cold, or chest congestion. Denies shortness of breath, difficulty breathing, or wheezing. GASTROINTESTINAL: Denies abdominal pain or distention. Denies nausea, vomiting , or diarrhea. Denies blood in vomitus, stools, or per rectum. Denies black, tarry stools. Denies constipation. GENITOURINARY: Denies difficulty urinating, painful urination, burning, frequency, blood in urine, or discharge. FEMALE GENITOURINARY: Denies vaginal bleeding, heavy or abnormal periods, irregular periods. Denies vaginal discharge or odor. MUSCULOSKELETAL: Denies back or neck pain or stiffness. Denies joint pain or swelling. SKIN: Denies rash, lesions or sores. HEMATOLOGIC : Denies easy bruising or bleeding. LYMPHATIC: Denies swollen, enlarged glands. NEUROLOGICAL: Denies confusion or altered mental status. Denies passing out or loss of consciousness. Denies dizziness or lightheadedness. Denies headache. Denies weakness or paralysis or loss of use of either side. Denies problems with gait or speech. Denies sensory loss, numbness, or tingling. Denies seizures. PSYCHIATRIC: Denies anxiety or stress. Denies depression, suicidal ideation, or homicidal ideation. ALL OTHER SYSTEMS REVIEWED AND NEGATIVE. PHYSICAL EXAMINATION: GENERAL: Well-appearing, well-nourished and in no acute distress. HEAD: Atraumatic, normocephalic. EYES: Pupils equal round and reactive to light, extraocular movements intact, conjunctiva are normal. ENT: Bilateral tonsillar erythema with exudate on the right uvula midline no abscess noted NECK: Normal range of motion, supple without lymphadenopathy LUNGS: Breath sounds clear to auscultation bilaterally and equal. No wheezes rales or rhonchi. HEART: Tachycardic ABDOMEN: Soft, nontender, nondistended abdomen. No guarding, no rebound. No masses appreciated. Female : deferred Musculoskeletal: Normal range of motion, no pitting or edema. No cyanosis. NEUROLOGICAL: Cranial nerves grossly intact. Normal speech, normal gait. Normal sensory, motor exams PSYCH: Normal mood, normal affect. SKIN: Warm, Dry, normal turgor, no rashes or lesions noted. Dictation was performed using [employer] voice recognition software Physical Exam - Vital signs Vitals: Temp Pulse Resp BP Pulse Ox 100.3 F 130 H 18 143/106 H 98 06/17/17 09:07 06/17/17 09:07 06/17/17 09:07 06/17/17 09:07 06/17/17 09:07 Course - Re-evaluation Re-evalutation: 06/17/17 15:20 Patient is noted to be febrile tachycardic with sore throat. Rapid strep was positive for apparent strep pharyngitis. Patient requests IM injection which has been given to her. She is otherwise well-appearing obviously ill from the strep throat but overall nontoxic After performing a Medical Screening Examination, I estimate there is LOW risk for ACUTE CORONARY SYNDROME, RESPIRATORY FAILURE, SEPSIS OR MENINGITIS, thus I consider the discharge disposition reasonable. I have reevaluated this patient multiple times and no significant life threatening changes are noted. The patient and I have discussed the diagnosis and risks, and we agree with discharging home with close follow-up. We also discussed returning to the Emergency Department immediately if new or worsening symptoms occur. We have discussed the symptoms which are most concerning (e.g., changing or worsening pain, trouble swallowing or breathing, neck stiffness, fever) that necessitate immediate return. - Vital Signs Vital signs: Temp Pulse Resp BP Pulse Ox 100.3 F 130 H 18 143/106 H 98 06/17/17 09:07 06/17/17 09:07 06/17/17 09:07 06/17/17 09:07 06/17/17 09:07 Discharge - Discharge Clinical Impression: Strep pharyngitis, Tachycardia Fever Qualifiers: Fever type: unspecified Qualified Code(s): R50.9 - Fever, unspecified Condition: Stable Disposition: HOME, SELF-CARE Instructions: Strep Throat ([facility]) Additional Instructions: Follow up with your physician tomorrow for further care or return to the ED IMMEDIATELY if symptoms worsen or new concerns occur. If you cannot afford to follow up with your primary care physician a list of low cost clinics have been provided at the end of your discharge papers as well.
[2017-06-17 18:44] VITALS: BP 136/98
== END 2017-06-17 11:36 | disposition home or self-care (01) ==
LOC: ER 09:02
DX: J02.0 Streptococcal pharyngitis (principal); R00.0 Tachycardia, unspecified; R11.2 Nausea with vomiting, unspecified; R50.9 Fever, unspecified
CPT/HCPCS: 99284; 96372; 87880; 87804; S0119; J0561

== ENCOUNTER 2017-06-18 01:22 | Inpatient (IN) | payer OTHER, MEDICAID ==
[2017-06-18] MEDS ORDERED: DEXAMETHASONE SOD PHOS INJ 10 MG/1 ML VIAL IV ONE (03:00)
[2017-06-18] MEDS ORDERED: ONDANSETRON HCL INJ/PF 4 MG/2 ML SDV IV ONE ×2 (03:00→05:57)
--- NOTE | 2017-06-18 03:23 | ER Document Report ---
ED General - General Chief Complaint: Sore Throat Stated Complaint: SORE THROAT Time Seen by Provider: 06/18/17 02:54 Notes: Patient is a 31-year-old female presents with complaints of a sore throat. Patient says that she has had a sore throat throat for several days now. She had a fever 2 days ago. Yesterday she was seen in the ER and diagnosed with strep throat. She was given a shot of penicillin. She says that since then she has had continue sore throat and also has been vomiting has had a hard time holding down food or liquids. She denies any further fevers. She says her fevers seem to have resolved. She denies any difficulty breathing or swallowing. No other complaints at this time. TRAVEL OUTSIDE OF THE [place] IN LAST 30 DAYS: No - Related Data Allergies/Adverse Reactions: No Known Allergies Allergy (Unverified 06/18/17 01:37) Past Medical History - Social History Smoking Status: Never Smoker Frequency of alcohol use: None Drug Abuse: None Family History: DM, Hypertension - Past Medical History Cardiac Medical History: Reports: Hx Hypertension - no meds Denies: Hx Coronary Artery Disease, Hx Heart Attack, Hx Heart Murmur Pulmonary Medical History: Denies: Hx Asthma, Hx Bronchitis, Hx COPD, Hx Pneumonia Neurological Medical History: Denies: Hx Cerebrovascular Accident, Hx Seizures Endocrine Medical History: Denies: Hx Hyperthyroidism, Hx Hypothyroidism Renal/ Medical History: Reports: Hx Ovarian Cysts. Denies: Hx Peritoneal Dialysis, Hx Pelvic Inflammatory Disease Malignancy Medical History: Denies: Hx Breast Cancer, Hx Cervical Cancer, Hx Ovarian Cancer Musculoskeltal Medical History: Denies Hx Arthritis Past Surgical History: Reports: Hx Section, Hx Dilation and Curettage. Denies: Hx Hysterectomy - Immunizations Hx Diphtheria, Pertussis, Tetanus Vaccination: Yes Review of Systems - Review of Systems Notes: My Normal Review Basic REVIEW OF SYSTEMS: CONSTITUTIONAL : Denies fever, chills, or sweats. Denies recent illness. EENT: Sore throat. RESPIRATORY: Denies cough, cold, or chest congestion. Denies shortness of breath, difficulty breathing, or wheezing. GASTROINTESTINAL: Denies abdominal pain. Vomiting. MUSCULOSKELETAL: Denies neck or back pain or joint pain or swelling. SKIN: Denies rash or skin lesions. NEUROLOGICAL: Denies altered mental status or loss of consciousness. Denies headache. Denies weakness or paralysis or loss of use of either side. Denies problems with gait or speech. Denies sensory or motor loss. ALL OTHER SYSTEMS REVIEWED AND NEGATIVE. Physical Exam - Vital signs Vitals: Temp Pulse Resp BP Pulse Ox 98.4 F 130 H 18 112/64 100 06/18/17 01:37 06/18/17 01:37 06/18/17 01:37 06/18/17 01:37 06/18/17 01:37 - Notes Notes: General Appearance: Well nourished, alert, cooperative, no acute distress, mild obvious discomfort. Vitals: reviewed, See vital signs table. Head: no swelling or tenderness to the head Eyes: PERRL, EOMI, Conjuctiva clear Mouth: No decreasd moisture Throat: Some erythema over the tonsillar beds. Uvula is midline. I do not see any swelling or edema in the peritonsillar area. Nothing to suggest peritonsillar abscess. Patient's voice is normal. She is able to fully open and close her jaw without difficulty. She is handling secretions. Neck: Supple, no neck tenderness, no swelling along neck. Lungs: No wheezing, No rales, No rhonci, No accessory muscle use, good air exchange bilaterally. Heart: Normal rate, Regular rythm, No murmur, no rub Abdomen: Normal BS, soft, No rigidity, No abdominal tenderness, No guarding, no rebound, no abdominal masses, no organomegaly Extremities: strength 5/5 in all extremities, good pulses in all extremities, no swelling or tenderness in the extremities, no edema. Skin: warm, dry, appropriate color, no rash Neuro: speech clear, oriented x 3, normal affect, responds appropriately to questions. Course - Re-evaluation Re-evalutation: 06/18/17 05:13 Patient's blood work is now back and her white count is very high at 26,000. Her labs also show severe dehydration. Her creatinine is 2.1. She is severely hypomagnesemic at 1.2. I will give her IV magnesium. We will send her straight to CT scan to make sure that there is not an underlying abscess I am not seeing on physical exam. Patient continues to have complete control of her airway without any impending signs of airway compromise on exam. Voice remains normal. 06/18/17 06:[address] scan was negative. She continues you so signs of dehydration and rate current vomiting intractable vomiting. Patient will be admitted for her intractable vomiting and dehydration and electrolyte abnormalities. I did speak with Dr. Tubbs who agrees to admit the patient. Dictation of this chart was performed using voice recognition software; therefore, there may be some unintended grammatical errors. - Vital Signs Vital signs: Temp Pulse Resp BP Pulse Ox 98.4 F 130 H 18 132/47 H 100 06/18/17 01:37 06/18/17 01:37 06/18/17 01:37 06/18/17 06:00 06/18/17 06:01 - Laboratory Result Diagrams: 06/18/17 04:05 06/18/17 04:05 Laboratory results interpreted by me: 06/18/17 06/18/17 06/18/17 04:05 04:05 04:05 WBC 26.6 H Hgb 11.7 L Hct 35.2 L MCV 77 L MCH 25.6 L RDW 14.9 H Seg Neuts % (Manual) 83 H Band Neutrophils % 10 H Lymphocytes % (Manual) 3 L Abs Neuts (Manual) 24.7 H Sodium 136.4 L Potassium 3.4 L Chloride 96 L BUN 36 H Creatinine 2.10 H Est GFR ( Amer) 33 L Est GFR (Non-Af Amer) 27 L Glucose 169 H Calcium 8.3 L Magnesium 1.2 L* Creatine Kinase 1168 H Urine Protein Urine Glucose (UA) Urine Blood Urine Bilirubin Urine Urobilinogen Ur Leukocyte Esterase 06/18/17 05:28 WBC Hgb Hct MCV MCH RDW Seg Neuts % (Manual) Band Neutrophils % Lymphocytes % (Manual) Abs Neuts (Manual) Sodium Potassium Chloride BUN Creatinine Est GFR ( Amer) Est GFR (Non-Af Amer) Glucose Calcium Magnesium Creatine Kinase Urine Protein >=500 H Urine Glucose (UA) 50 H Urine Blood LARGE H Urine Bilirubin SMALL H Urine Urobilinogen 2.0 H Ur Leukocyte Esterase MODERATE H Discharge - Discharge Clinical Impression: Sore throat, Renal insufficiency, Hypomagnesemia, Hypokalemia Vomiting Qualifiers: Vomiting type: unspecified Vomiting Intractability: intractable Nausea presence : with nausea Qualified Code(s): R11.2 - Nausea with vomiting, unspecified Condition: Stable Disposition: ADMITTED OBSERVATION Admitting Provider: Hospitalist
[2017-06-18] MEDS: NORMAL SALINE 1000 ML 1,000 ML IV PRN ×5 (04:11→22:22)
[2017-06-18 04:30] LABS: HEMATOCRIT 35.2 % (36.0-47.0); HEMOGLOBIN 11.7 g/dL (12.0-15.5); HGB HCT DIFFERENCE -0.1; MEAN CORPUSCULAR HEMOGLOBIN 25.6 pg (27.0-33.4); MEAN CORPUSCULAR HGB CONC 33.3 g/dL (32.0-36.0); MEAN CORPUSCULAR VOLUME 77 fl (80-97); RED BLOOD COUNT 4.57 10^6/uL (3.72-5.28); RED CELL DISTRIBUTION WIDTH 14.9 % (11.5-14.0); WHITE BLOOD COUNT 26.6 10^3/uL (4.0-10.5)
[2017-06-18 04:44] LABS: BLOOD UREA NITROGEN 36 mg/dL (7-20); CALCIUM 8.3 mg/dL (8.4-10.2); CARBON DIOXIDE 22 mmol/L (22-30); GLUCOSE 169 mg/dL (75-110); POTASSIUM 3.4 mmol/L (3.6-5.0)
[2017-06-18] MEDS ORDERED: NORMAL SALINE 1000 ML 1,000 ML IV ONE (04:49)
[2017-06-18 04:56] LABS: MAGNESIUM 1.2 mg/dL (1.6-2.3)
[2017-06-18 04:59] LABS: BAND NEUTROPHILS % (MANUAL) 10 % (3-5); BASOPHILS % (MANUAL) 0 % (0-2); EOSINOPHILS % (MANUAL) 1 % (0-6); LYMPHOCYTES % (MANUAL) 3 % (13-45); TOTAL CELLS COUNTED 100; TOXIC VACUOLATION PRESENT
[2017-06-18 05:00] LABS: ANISOCYTOSIS 1+
[2017-06-18 05:01] LABS: ANION GAP 18 (5-19); CHLORIDE 96 mmol/L (98-107); MICROCYTOSIS SLIGHT; POIKILOCYTOSIS 1+; SODIUM 136.4 mmol/L (137-145); TARGET CELLS SLIGHT
[2017-06-18] MEDS ORDERED: PROMETHAZINE HCL INJ 25 MG/1 ML VIAL IM ONE (05:57)
[2017-06-18] MEDS: MAGNESIUM SULFATE/D5W 1 GM/100 ML RTUPB IV SCH ×4 (05:57→12:31)
--- NOTE | 2017-06-18 06:01 | RADIOLOGY REPORT (SQ) ---
EXAM DESCRIPTION: CT SOFT TISSUE NECK WITHOUT COMPLETED DATE/TIME: 06/18/2017 5:38 am REASON FOR STUDY: leukocytosis, sore throat, vomiting COMPARISON: None. TECHNIQUE: Noncontrast scanning from skull base through lung apices with review of bone, soft tissue and lung windows. Reconstructed coronal and sagittal MPR images reviewed. All images stored on PAC S. All CT scanners at this facility use dose modulation, iterative reconstruction, and/or weight based d osing when appropriate to reduce radiation dose to as low as reasonably achievable (ALARA). [facility]: Dose Right [facility]: CareDose [facility]: Dose Right [facility]: Teradose 4D [facility]: [employer] RADIATION DOSE: Up-to-date CT equipment and radiation dose reduction techniques were employed. CTDIv ol: 17.8 mGy. DLP: 560 mGy-cm. mGy. LIMITATIONS: None. FINDINGS: SKULL BASE: Intact. MAJOR SALIVARY GLANDS: No inflammatory changes. LYMPHADENOPATHY: Mildly enlarged lymph nodes are seen along the bilateral jugular chain measuring up to 12 mm in short axis on the right and 14 mm in short axis on the left. MUCOSAL MASSES OR ASYMMETRY: No mucosal masses or asymmetry. LARYNX/CORDS: No abnormal findings. LUNG APICES: Clear. BONES: Intact. THYROID: Normal size. PARANASAL SINUSES: Clear. IMPRESSION: Mild bilateral cervical adenopathy. Otherwise, no acute findings in the soft tissues of the neck on unenhanced CT. TECHNICAL DOCUMENTATION: JOB ID: [id number] ME-64 Quality ID # [id number]: Final reports with documentation of one or more dose reduction techniques (e.g., Au tomated exposure control, adjustment of the mA and/or kV according to patient size, use of iterative reconstruction technique) 2010 [facility]- All Rights Reserved
[2017-06-18 06:04] LABS: AMORPHOUS SEDIMENT,URINE TRACE /HPF; APPEARANCE,URINE CLOUDY; BILIRUBIN,URINE SMALL (NEGATIVE); GLUCOSE, URINE 50 mg/dL (NEGATIVE); KETONES,URINE NEGATIVE (NEGATIVE); LEUKOCYTE ESTERASE,URINE MODERATE (NEGATIVE); NITRITE,URINE NEGATIVE (NEGATIVE); PROTEIN,URINE >=500 mg/dL (NEGATIVE); URINE SPECIFIC GRAVITY 1.029
[2017-06-18] MEDS ORDERED: NORMAL SALINE 1000 ML 2,000 ML IV PRN (06:07)
[2017-06-18] MEDS ORDERED: ONDANSETRON HCL INJ/PF 4 MG/2 ML SDV IV PRN (06:10)
[2017-06-18] MEDS ORDERED: ACETAMINOPHEN 650 MG SUPP.RECT PR PRN ×2 (06:10→16:00)
[2017-06-18] MEDS ORDERED: DEXTROSE 50%-WATER 25 GM/50 ML DISP.SYRIN IV PRN ×2 (06:33)
[2017-06-18] MEDS ORDERED: GLUCAGON,HUMAN RECOMB 1 MG INJ IM PRN (06:33)
[2017-06-18] MEDS ORDERED: DEXTROSE 40% GEL 15 GM TUBE PO PRN ×2 (06:33)
[2017-06-18 06:35] LABS: URINE BARBITURATES SCREEN NEGATIVE; URINE METHADONE SCREEN NEGATIVE; URINE OPIATES LOW NEGATIVE; URINE PHENCYCLIDINE SCREEN NEGATIVE
[2017-06-18] MEDS ORDERED: POTASSI CL 20 MEQ/50 ML RIDER 20 MEQ/50 ML RTUPB IV SCH (06:35)
--- NOTE | 2017-06-18 06:56 | PDOC H&P ---
History of Present Illness Admission Date/PCP: 06/18/17 06:10 PRASANNA LEWIS MD History of Present Illness: DMITRY PASTOR is a 31 year old female with past medical history of gestational diabetes and preeclampsia who reports that starting about a week and half ago her throat felt funny and began to worsen over the next last several days. She presented into the emergency department about 48 hours ago with complaints of fever accompanied by hallucinations and shaking chills. Patient was found to be positive for group a strep by rapid strep and was given 1.2 million units of intramuscular penicillin. Patient reports that she went home and began having vomiting. She did report that she has been having diarrhea as well over the last several days and has been unable to hold her stool. She denies raw or undercooked meat, raw or undercooked seafood, or foreign travel. She has not been breast-feeding well she has been feeling poorly. She also reports that she has been having significant bleeding still. She reports that it has been heavier than a period at times. Patient complains of generalized pain and nausea and vomiting. Patient underwent CT of the soft tissues of the neck in the emergency department which is found to be negative. She is referred to hospital service for acute renal failure and intractable vomiting. Past Medical History Cardiac Medical History: Reports: Hypertension - no meds Denies: Coronary Artery Disease, Myocardial Infarction, Heart Murmur Pulmonary Medical History: Denies: Asthma, Bronchitis, Chronic Obstructive Pulmonary Disease (COPD), Pneumonia Neurological Medical History: Denies: Seizures Endocrine Medical History: Reports: Gestational Diabetes, Obesity Denies: Hyperthyroidism, Hypothyroidism Malignancy Medical History: Denies: Breast Cancer, Cervical Cancer, Ovarian Cancer Musculoskeltal Medical History: Denies: Arthritis Hematology: Reports: Anemia Past Surgical History Past Surgical History: Reports: Section Denies: Hysterectomy Social History Smoking Status: Never Smoker Frequency of Alcohol Use: Rare Hx Recreational Drug Use: No Hx Prescription Drug Abuse: No - Advance Directive Resuscitation Status: Full Code Surrogate healthcare decision maker:: AuntJULIA Family History Family History: CAD, DM, Hypertension Parental Family History Reviewed: Yes Children Family History Reviewed: Yes Sibling(s) Family History Reviewed.: Yes Medication/Allergy Home Medications: No Home Medications 06/17/17 Allergies/Adverse Reactions: No Known Allergies Allergy (Unverified 06/18/17 01:37) Review of Systems Constitutional: PRESENT: anorexia, chills, fatigue, fever(s). ABSENT: headache( s), weight gain, weight loss Eyes: ABSENT: visual disturbances Ears: ABSENT: hearing changes Nose, Mouth, and Throat: PRESENT: sore throat Cardiovascular: ABSENT: chest pain, dyspnea on exertion, edema, orthropnea, palpitations Respiratory: ABSENT: cough, dyspnea, hemoptysis, sputum Gastrointestinal: PRESENT: diarrhea, nausea, vomiting. ABSENT: abdominal pain, constipation, hematemesis, hematochezia Genitourinary: PRESENT: dysuria. ABSENT: hematuria Musculoskeletal: ABSENT: joint swelling Integumentary: ABSENT: rash, wounds Neurological: ABSENT: abnormal gait, abnormal speech, confusion, dizziness, focal weakness, syncope Psychiatric: ABSENT: anxiety, depression, homidical ideation, suicidal ideation Endocrine: ABSENT: cold intolerance, heat intolerance, polydipsia, polyphagia, polyuria Hematologic/Lymphatic: ABSENT: easy bleeding, easy bruising Physical Exam Vital Signs: Temp Pulse Resp BP Pulse Ox 98.4 F 130 H 18 132/47 H 100 06/18/17 01:37 06/18/17 01:37 06/18/17 01:37 06/18/17 06:00 06/18/17 06:01 General appearance: PRESENT: mild distress, morbidly obese, well-developed, well -nourished Head exam: PRESENT: atraumatic, normocephalic Eye exam: PRESENT: conjunctiva pink, EOMI, PERRLA. ABSENT: scleral icterus Ear exam: PRESENT: normal external ear exam Mouth exam: PRESENT: dry mucosa, neck supple, tongue midline Throat exam: PRESENT: tonsillar exudate. ABSENT: post pharyngeal erythema, tonsillar erythema, tonsillogmegaly Neck exam: PRESENT: lymphadenopathy - Shotty anterior cervical. ABSENT: JVD, meningismus, tenderness, thyromegaly, tracheal deviation Respiratory exam: PRESENT: clear to auscultation jay, symmetrical, unlabored. ABSENT: accessory muscle use, rales, rhonchi, tachypnea, wheezes Cardiovascular exam: PRESENT: RRR, +S1, +S2, tachycardia. ABSENT: diastolic murmur, rubs, systolic murmur Pulses: PRESENT: normal dorsalis pedis pul Vascular exam: PRESENT: pallor GI/Abdominal exam: PRESENT: normal bowel sounds, soft. ABSENT: distended, firm , guarding, mass, Key's sign, organolmegaly, rebound, rigid, tenderness Rectal exam: PRESENT: deferred Extremities exam: PRESENT: full ROM. ABSENT: calf tenderness, clubbing, pedal edema Neurological exam: PRESENT: alert, awake, oriented to person, oriented to place , oriented to time, oriented to situation, CN II-XII grossly intact. ABSENT: motor sensory deficit Psychiatric exam: PRESENT: appropriate affect, normal mood. ABSENT: homicidal ideation, suicidal ideation Skin exam: PRESENT: dry, intact, warm. ABSENT: cyanosis, rash Results Laboratory Results: 06/18/17 06/18/17 06/18/17 04:05 04:05 05:28 Sodium 136.4 L Potassium 3.4 L Chloride 96 L Carbon Dioxide 22 Anion Gap 18 BUN 36 H Creatinine 2.10 H Est GFR ( Amer) 33 L Glucose 169 H Calcium 8.3 L Magnesium 1.2 L* Creatine Kinase 1168 H Ur Specific [place] 1.029 Urine Protein >=500 H Urine Glucose (UA) 50 H Urine Ketones NEGATIVE Urine Blood LARGE H Urine Bilirubin SMALL H Urine Urobilinogen 2.0 H Ur Leukocyte Esterase MODERATE H Urine WBC (Auto) 13 Urine HCG, Qual 06/18/17 05:28 Sodium Potassium Chloride Carbon Dioxide Anion Gap BUN Creatinine Est GFR ( Amer) Glucose Calcium Magnesium Creatine Kinase Ur Specific [place] Urine Protein Urine Glucose (UA) Urine Ketones Urine Blood Urine Bilirubin Urine Urobilinogen Ur Leukocyte Esterase Urine WBC (Auto) Urine HCG, Qual NEGATIVE Impressions: Soft Tissue Neck CT 06/18/17 05:11 IMPRESSION: Mild bilateral cervical adenopathy. Otherwise, no acute findings in the soft tissues of the neck on unenhanced CT. Assessment & Plan - Diagnosis (1) Acute renal failure Qualifiers: Acute renal failure type: unspecified Qualified Code(s): N17.9 - Acute kidney failure, unspecified Is this a current diagnosis for this admission?: Yes Plan: Likely secondary to dehydration. Will rehydrate. Place patient on NS at 200 mL an hour (2) Hyponatremia Is this a current diagnosis for this admission?: Yes Plan: Likely secondary to intravascular volume depletion. Will recheck (3) Impaired fasting glucose Is this a current diagnosis for this admission?: Yes Plan: Check hemoglobin A1c and place on Accu-Cheks History of gestational diabetes (4) Rhabdomyolysis Qualifiers: Rhabdomyolysis type: non-traumatic Qualified Code(s): M62.82 - Rhabdomyolysis Is this a current diagnosis for this admission?: Yes Plan: Possibly secondary to febrile illness. Repeat CPK. Patient will be hydrated and electro lites monitored. Concern for arrhythmia (5) Hypokalemia Is this a current diagnosis for this admission?: Yes Plan: Replete and recheck (6) Hypomagnesemia Is this a current diagnosis for this admission?: Yes Plan: Replete and recheck. Monitor for arrhythmia (7) Vomiting Qualifiers: Vomiting type: unspecified Vomiting Intractability: intractable Nausea presence: with nausea Qualified Code(s): R11.2 - Nausea with vomiting, unspecified Is this a current diagnosis for this admission?: Yes Plan: Place patient on Zofran (8) Strep pharyngitis Is this a current diagnosis for this admission?: Yes Plan: Patient has received definitive treatment for this (9) Morbid obesity with BMI of 40.0-44.9, adult Is this a current diagnosis for this admission?: Yes (10) Diarrhea Qualifiers: Diarrhea type: unspecified type Qualified Code(s): R19.7 - Diarrhea, unspecified Is this a current diagnosis for this admission?: Yes Plan: We will check stool culture and C. difficile - Time Time Spent: 50 to 70 Minutes Medications reviewed and adjusted accordingly: Yes Anticipated discharge: Home Within: within 48 hours - Inpatient Certification Based on my medical assessment, after consideration of the patient's comorbidities, presenting symptoms, or acuity I expect that the services needed warrant INPATIENT care.: Yes I certify that my determination is in accordance with my understanding of Medicare's requirements for reasonable and necessary INPATIENT services [42 CFR 412.3e].: Yes Medical Necessity: Need For IV Fluids Post Hospital Care: D/C Aerologist Documentation
[2017-06-18] MEDS ORDERED: CEFEPIME 1 GM/D5W RTU 1 GM/50 ML RTUPB IV ONE (08:15)
[2017-06-18] MEDS: POTASSI CL 20 MEQ/50 ML RIDER 20 MEQ/50 ML RTUPB IV SCH ×2 (11:48→14:39)
[2017-06-18] MEDS ORDERED: MEDROXYPROGESTERONE ACET INJ 150 MG/1 ML VIAL IM ONE (12:00)
[2017-06-18] MEDS: FAMOTIDINE 20 MG TABLET PO SCH ×2 (12:06→22:22)
[2017-06-18] MEDS ORDERED: ACETAMINOPHEN 325 MG TABLET PO PRN (15:28)
--- NOTE | 2017-06-18 17:16 | Progress Note ---
Provider Note Provider Note: Patient seen and examined. I did go ahead and start her on some IV antibiotics since she had a positive strep and recently 21 days. Recheck labs in the a.m. CPK BMP
[2017-06-18 17:42] LABS: HEMATOCRIT 33.5 % (36.0-47.0); HEMOGLOBIN 10.9 g/dL (12.0-15.5); HGB HCT DIFFERENCE -0.8; MEAN CORPUSCULAR HEMOGLOBIN 25.3 pg (27.0-33.4); MEAN CORPUSCULAR HGB CONC 32.6 g/dL (32.0-36.0); MEAN CORPUSCULAR VOLUME 78 fl (80-97); RED BLOOD COUNT 4.32 10^6/uL (3.72-5.28); RED CELL DISTRIBUTION WIDTH 14.7 % (11.5-14.0); WHITE BLOOD COUNT 24.4 10^3/uL (4.0-10.5)
[2017-06-18] MEDS ORDERED: INFLUENZA ADLT QUAD (36MOS+) 2017-18 VAC 0.5 ML SYR IM PRN (20:46)
[2017-06-18] MEDS: CEFEPIME 1 GM/D5W RTU 1 GM/50 ML RTUPB IV SCH (22:22)
[2017-06-18 22:45] LABS: ANION GAP 13 (5-19); BLOOD UREA NITROGEN 19 mg/dL (7-20); CALCIUM 7.7 mg/dL (8.4-10.2); CARBON DIOXIDE 20 mmol/L (22-30); CHLORIDE 109 mmol/L (98-107); GLUCOSE 202 mg/dL (75-110); POTASSIUM 4.1 mmol/L (3.6-5.0); SODIUM 142.1 mmol/L (137-145)
[2017-06-19] MEDS: NORMAL SALINE 1000 ML 1,000 ML IV PRN ×2 (05:09→10:25)
[2017-06-19 07:13] LABS: HEMATOCRIT 33.1 % (36.0-47.0); HEMOGLOBIN 10.7 g/dL (12.0-15.5); MEAN CORPUSCULAR HGB CONC 32.2 g/dL (32.0-36.0); MEAN CORPUSCULAR VOLUME 78 fl (80-97); RED BLOOD COUNT 4.27 10^6/uL (3.72-5.28); RED CELL DISTRIBUTION WIDTH 14.9 % (11.5-14.0); WHITE BLOOD COUNT 22.2 10^3/uL (4.0-10.5)
[2017-06-19 09:22] LABS: ANION GAP 15 (5-19); BLOOD UREA NITROGEN 16 mg/dL (7-20); CALCIUM 7.6 mg/dL (8.4-10.2); CARBON DIOXIDE 20 mmol/L (22-30); CHLORIDE 110 mmol/L (98-107); CREATININE RESULT 0.81 mg/dL (0.52-1.25); GLUCOSE 181 mg/dL (75-110); POTASSIUM 4.2 mmol/L (3.6-5.0); SODIUM 144.8 mmol/L (137-145)
[2017-06-19] MEDS: INSULIN LISPRO 100 UNIT/ML 3 ML VIAL SUBCUT PRN ×2 (10:17→13:31)
[2017-06-19] MEDS: FAMOTIDINE 20 MG TABLET PO SCH (10:19)
[2017-06-19] MEDS: CEFEPIME 1 GM/D5W RTU 1 GM/50 ML RTUPB IV SCH (10:19)
[2017-06-19 13:46] VITALS: BP 144/103
--- NOTE | 2017-06-19 14:34 | PDOC DISCHARGE SUMMARY ---
General - Admit/Disc Date/PCP Admission Date/Primary Care Provider: 06/18/17 09:04 PRASANNA LEWIS MD Discharge Date: 06/19/17 - Discharge Diagnosis (1) Acute renal failure Is this a current diagnosis for this admission?: Yes (2) Diarrhea Is this a current diagnosis for this admission?: Yes (3) Hyponatremia Is this a current diagnosis for this admission?: Yes (4) Morbid obesity with BMI of 40.0-44.9, adult Is this a current diagnosis for this admission?: Yes - Additional Information Resuscitation Status: Full Code Discharge Diet: As Tolerated Discharge Activity: Activity As Tolerated Home Medications: Acetaminophen [Tylenol 325 mg Tablet] 650 mg PO Q4HP PRN tablet 06/19/17 Azithromycin 500 mg PO DAILY 7 Days tablet 06/19/17 History of Present Illness History of Present Illness: DMITRY PASTOR is a 31 year old female Hospital Course Hospital Course: 31-year-old female past medical history gestational diabetes who delivered approximately 21 days ago. She had shaking chills fever recently diagnosed with strep throat and received IM penicillin as an outpatient. Patient developed diarrhea nausea vomiting she was also found to have some acute renal failure secondary to her intractable vomiting and diarrhea and dehydration. Patient was brought into the emergency room she was given IV fluids tolerated well she just appeared very toxic so she was admitted overnight. She was found to have rhabdo secondary to her dehydration and vomiting. It rapidly improved. Patient was also found to have hyponatremia secondary to her intravascular volume depletion which improved after receiving IV fluids. Since the patient recently given and she tested positive for strep right after felt that we should probably treat her since she was having some vaginal bleeding and discomfort for possible vaginitis or endometriaitis. However today after seen the patient she looks much better after receiving IV fluid hydration approximately 4 L she was given anti-medics and was started on some antibiotics which we will continue outpatient Zithromax 500 mg daily for 7 days. We felt that patient rapidly improved due to the unfortunate event that her 6- year-old daughter was brought into the emergency room here with DKA and she was taken via helicopter to [place] to be treated. Patient is a single mother and states she has no help except for her brother and her best friend who are both males and they really did not feel comfortable being with the patient's daughter. So based on that patient states she really would like to be discharged home which I agree she much better today. She was given discharge instructions to call or follow with primary care doctor in 1 week and her OB/ [employer] on their recommendations. Feel it patient stable to be discharged home so she can take care of her daughter who is apparently very critically sick. Physical Exam Vital Signs: Temp Pulse Resp BP Pulse Ox 97.7 F 105 H 18 144/103 H 100 06/19/17 13:31 06/19/17 13:31 06/19/17 13:19 06/19/17 13:31 06/19/17 13:31 Intake & Output 06/18/17 06/19/17 06/20/17 06:59 06:59 06:59 Intake Total 4290 Balance 4290 Weight 125.7 kg General appearance: PRESENT: no acute distress, well-developed, well-nourished Head exam: PRESENT: atraumatic, normocephalic Eye exam: PRESENT: conjunctiva pink, EOMI, PERRLA. ABSENT: scleral icterus Ear exam: PRESENT: normal external ear exam Mouth exam: PRESENT: moist, tongue midline Neck exam: ABSENT: carotid bruit, JVD, lymphadenopathy, thyromegaly Respiratory exam: PRESENT: clear to auscultation jay. ABSENT: rales, rhonchi, wheezes Cardiovascular exam: PRESENT: RRR. ABSENT: diastolic murmur, rubs, systolic murmur Pulses: PRESENT: normal dorsalis pedis pul Vascular exam: PRESENT: normal capillary refill GI/Abdominal exam: PRESENT: normal bowel sounds, soft. ABSENT: distended, guarding, mass, organolmegaly, rebound, tenderness Rectal exam: PRESENT: deferred Extremities exam: PRESENT: full ROM. ABSENT: calf tenderness, clubbing, pedal edema Neurological exam: PRESENT: alert, awake, oriented to person, oriented to place , oriented to time, oriented to situation, CN II-XII grossly intact. ABSENT: motor sensory deficit Psychiatric exam: PRESENT: appropriate affect, normal mood. ABSENT: homicidal ideation, suicidal ideation Skin exam: PRESENT: dry, intact, warm. ABSENT: cyanosis, rash Results Laboratory Results: 06/19/17 06:59 06/19/17 08:27 06/18/17 06/18/17 06/18/17 17:15 22:03 22:32 WBC 24.4 H RBC 4.32 Hgb 10.9 L Hct 33.5 L MCV 78 L MCH 25.3 L MCHC 32.6 RDW 14.7 H Plt Count 161 Sodium 142.1 Potassium 4.1 Chloride 109 H Carbon Dioxide 20 L Anion Gap 13 BUN 19 Creatinine 0.90 Est GFR ( Amer) > 60 Est GFR (Non-Af Amer) > 60 Glucose 202 H Calcium 7.7 L Stool Occult Blood NEGATIVE Stool for White Cells 06/18/17 06/19/17 06/19/17 22:32 06:59 06:59 WBC 22.2 H RBC 4.27 Hgb 10.7 L Hct 33.1 L MCV 78 L MCH 25.0 L MCHC 32.2 RDW 14.9 H Plt Count 183 Sodium Cancelled Potassium Cancelled Chloride Cancelled Carbon Dioxide Cancelled Anion Gap Cancelled BUN Cancelled Creatinine Cancelled Est GFR ( Amer) Cancelled Est GFR (Non-Af Amer) Cancelled Glucose Cancelled Calcium Cancelled Stool Occult Blood Stool for White Cells NO WBCs SEEN 06/19/17 08:27 WBC RBC Hgb Hct MCV MCH MCHC RDW Plt Count Sodium 144.8 Potassium 4.2 Chloride 110 H Carbon Dioxide 20 L Anion Gap 15 BUN 16 Creatinine 0.81 Est GFR ( Amer) > 60 Est GFR (Non-Af Amer) > 60 Glucose 181 H Calcium 7.6 L Stool Occult Blood Stool for White Cells 06/19/17 06/19/17 06:59 08:27 CK-MB (CK-2) Cancelled 1.14 Impressions: Soft Tissue Neck CT 06/18/17 05:11 IMPRESSION: Mild bilateral cervical adenopathy. Otherwise, no acute findings in the soft tissues of the neck on unenhanced CT. Plan Time Spent: Less than 30 Minutes
== END 2017-06-19 14:15 | disposition home or self-care (01) | DRG 776 ==
LOC: ER 01:22 → EH 06:10 → 4N 07:38 → OBSVTOIN 09:04
PROVIDERS: ADMIT Family Medicine; ATTEND Family Medicine
DX: O90.4 Postpartum acute kidney failure (principal); E87.1 Hypo-osmolality and hyponatremia; Z68.42 Body mass index [BMI] 45.0-49.9, adult; M62.82 Rhabdomyolysis; O99.89 Other specified diseases and conditions complicating pregnancy, childbirth and the puerperium; J02.0 Streptococcal pharyngitis; O90.89 Other complications of the puerperium, not elsewhere classified; E86.0 Dehydration; O99.215 Obesity complicating the puerperium; E83.42 Hypomagnesemia; E66.01 Morbid (severe) obesity due to excess calories
CPT/HCPCS: 36415; 70490; 80048; 80307; 81001; 81025; 82272; 82550; 82553; 82962; 83036; 83735; 84100; 84443; 85025; 85027; 87040; 87045; 87086; 87088; 87186; 87205; 87493; 89055; 90686; 96361; 96365; 96372; 96375; 96376; 99284; G0378; J0692; J1050; J1100; J1815; J2405; J2550; J3475; J3480; J3490; J7030

== ENCOUNTER 2017-06-28 19:43 | Inpatient (IN) | payer OTHER, MEDICAID ==
[2017-06-28 22:12] LABS: APPEARANCE,URINE SLIGHTLY-CLOUDY; BILIRUBIN,URINE NEGATIVE (NEGATIVE); GLUCOSE, URINE NEGATIVE (NEGATIVE); KETONES,URINE NEGATIVE (NEGATIVE); LEUKOCYTE ESTERASE,URINE NEGATIVE (NEGATIVE); NITRITE,URINE NEGATIVE (NEGATIVE); PROTEIN,URINE 100 mg/dL (NEGATIVE); URINE SPECIFIC GRAVITY 1.023; UROBILINOGEN,URINE NEGATIVE mg/dL (<2.0)
[2017-06-28 22:37] LABS: HEMATOCRIT 34.8 % (36.0-47.0); HEMOGLOBIN 11.4 g/dL (12.0-15.5); HGB HCT DIFFERENCE -0.6; MEAN CORPUSCULAR HEMOGLOBIN 25.8 pg (27.0-33.4); MEAN CORPUSCULAR HGB CONC 32.9 g/dL (32.0-36.0); MEAN CORPUSCULAR VOLUME 78 fl (80-97); RED BLOOD COUNT 4.44 10^6/uL (3.72-5.28); RED CELL DISTRIBUTION WIDTH 15.3 % (11.5-14.0)
[2017-06-28 22:52] LABS: ALANINE AMINOTRANSFERASE 74 U/L (9-52); ALBUMIN 4.1 g/dL (3.5-5.0); ALKALINE PHOSPHATASE 64 U/L (38-126); ANION GAP 14 (5-19); ASPARTATE AMINO TRANSFERASE 124 U/L (14-36); BILIRUBIN,DIRECT 0.4 mg/dL (0.0-0.4); BILIRUBIN,TOTAL 0.4 mg/dL (0.2-1.3); BLOOD UREA NITROGEN 12 mg/dL (7-20); CALCIUM 9.6 mg/dL (8.4-10.2); CARBON DIOXIDE 25 mmol/L (22-30); CHLORIDE 103 mmol/L (98-107); CREATININE RESULT 0.82 mg/dL (0.52-1.25); GLUCOSE 129 mg/dL (75-110); LIPASE 904.8 U/L (23-300); POTASSIUM 4.7 mmol/L (3.6-5.0); SODIUM 141.6 mmol/L (137-145); TOTAL PROTEIN 8.9 g/dL (6.3-8.2)
[2017-06-28 23:00] LABS: ANISOCYTOSIS SLIGHT; BASOPHILS % (MANUAL) 0 % (0-2); EOSINOPHILS % (MANUAL) 0 % (0-6); LYMPHOCYTES % (MANUAL) 34 % (13-45); MICROCYTOSIS SLIGHT; TOTAL CELLS COUNTED 100; TOXIC GRANULATION 1+; TOXIC VACUOLATION PRESENT
[2017-06-28] MEDS ORDERED: MORPHINE SULFATE 10 MG/ML INJ IV ONE (23:04)
[2017-06-28] MEDS ORDERED: NORMAL SALINE 1000 ML 1,000 ML IV PRN (23:04)
--- NOTE | 2017-06-28 23:05 | ER Document Report ---
ED General - General Chief Complaint: Low Back Pain Stated Complaint: LOWER BACK PAIN Time Seen by Provider: 06/28/17 22:51 Mode of Arrival: Ambulatory Information source: Patient TRAVEL OUTSIDE OF THE [place] IN LAST 30 DAYS: No - HPI Patient complains to provider of: Right flank Onset: Other - 2-3 days Onset/Duration: Gradual Quality of pain: Sharp Severity: Moderate Pain Level: 4 Exacerbated by: Movement, Coughing, Deep breathing Relieved by: Denies Notes: Patient is a 31-year-old female resenting to the emergency room complaining of right flank pain for the past few days, she was recently seen at this hospital and admitted for strep throat with acute renal failure from the hydration, going home she has been having pain in the right flank, she denies any nausea, vomiting or diarrhea, it does hurt when she moves a certain way or takes a deep breath, she denies any fever, 2 days ago she had some epigastric pain as well, patient is 2 weeks from a scheduled delivery - Related Data Allergies/Adverse Reactions: No Known Allergies Allergy (Unverified 06/18/17 01:37) Past Medical History - General Information source: Patient - Social History Smoking Status: Never Smoker Chew tobacco use (# tins/day): No Frequency of alcohol use: None Drug Abuse: None Family History: CAD, DM, Hypertension Patient has suicidal ideation: No Patient has homicidal ideation: No - Past Medical History Cardiac Medical History: Reports: Hx Hypertension - no meds Denies: Hx Coronary Artery Disease, Hx Heart Attack, Hx Heart Murmur Pulmonary Medical History: Denies: Hx Asthma, Hx Bronchitis, Hx COPD, Hx Pneumonia Neurological Medical History: Denies: Hx Cerebrovascular Accident, Hx Seizures Endocrine Medical History: Denies: Hx Hyperthyroidism, Hx Hypothyroidism Renal/ Medical History: Reports: Hx Ovarian Cysts. Denies: Hx Peritoneal Dialysis, Hx Pelvic Inflammatory Disease Malignancy Medical History: Denies: Hx Breast Cancer, Hx Cervical Cancer, Hx Ovarian Cancer Musculoskeltal Medical History: Denies Hx Arthritis Past Surgical History: Reports: Hx Section, Hx Dilation and Curettage. Denies: Hx Hysterectomy - Immunizations Hx Diphtheria, Pertussis, Tetanus Vaccination: Yes Review of Systems - Review of Systems Constitutional: No symptoms reported EENT: No symptoms reported Cardiovascular: No symptoms reported Respiratory: No symptoms reported Gastrointestinal: See HPI Genitourinary: No symptoms reported Female Genitourinary: No symptoms reported Musculoskeletal: No symptoms reported Skin: No symptoms reported Hematologic/Lymphatic: No symptoms reported Neurological/Psychological: No symptoms reported -: Yes All other systems reviewed and negative Physical Exam - Vital signs Vitals: Temp Pulse Resp BP Pulse Ox 99.5 F 84 17 135/85 H 100 06/28/17 20:40 06/28/17 20:40 06/28/17 20:40 06/28/17 20:40 06/28/17 20:40 Interpretation: Normal - General General appearance: Appears well, Alert - HEENT Head: Normocephalic, Atraumatic Eyes: Normal Pupils: PERRL - Respiratory Respiratory status: No respiratory distress Chest status: Nontender Breath sounds: Normal Chest palpation: Normal - Cardiovascular Rhythm: Regular Heart sounds: Normal auscultation Murmur: No - Abdominal Inspection: Normal Distension: No distension Bowel sounds: Normal Tenderness: Key's sign Organomegaly: No organomegaly - Back Back: Normal, Nontender - Extremities General upper extremity: Normal inspection, Nontender, Normal color, Normal ROM , Normal temperature General lower extremity: Normal inspection, Nontender, Normal color, Normal ROM , Normal temperature, Normal weight bearing. No: Chente's sign - Neurological Neuro grossly intact: Yes Cognition: Normal Orientation: AAOx4 [place] Coma Scale Eye Opening: Spontaneous Raj Coma Scale Verbal: Oriented [place] Coma Scale Motor: Obeys Commands [place] Coma Scale Total: 15 Speech: Normal Motor strength normal: LUE, RUE, LLE, RLE Sensory: Normal - Psychological Associated symptoms: Normal affect, Normal mood - Skin Skin Temperature: Warm Skin Moisture: Dry Skin Color: Normal Course - Re-evaluation Re-evalutation: 06/29/17 01:03 Patient was discussed with the surgeon, Dr. Gutierrez who agrees to admit for further evaluation and treatment, requests that patient be kept n.p.o. for likely surgery this plan was discussed with patient who is in agreement - Vital Signs Vital signs: Temp Pulse Resp BP Pulse Ox 97.8 F 84 17 140/78 H 96 06/29/17 01:01 06/28/17 20:40 06/28/17 20:40 06/29/17 02:01 06/29/17 02:01 - Laboratory Result Diagrams: 06/28/17 22:30 06/28/17 22:30 Laboratory results interpreted by me: 06/28/17 06/28/17 06/28/17 21:50 22:30 22:30 Hgb 11.4 L Hct 34.8 L MCV 78 L MCH 25.8 L RDW 15.3 H Glucose 129 H AST 124 H ALT 74 H Total Protein 8.9 H Lipase 904.8 H Urine Protein 100 H Urine Blood SMALL H Urine Ascorbic Acid 20 H - Diagnostic Test Radiology reviewed: Image reviewed, Reports reviewed Discharge - Discharge Clinical Impression: Gallstone pancreatitis Condition: Stable Disposition: ADMITTED INPATIENT Admitting Provider: Surgicalist Unit Admitted: Surgical Floor
[2017-06-29] MEDS ORDERED: MORPHINE SULFATE 10 MG/ML INJ IV ONE (00:30)
--- NOTE | 2017-06-29 00:39 | RADIOLOGY REPORT (SQ) ---
EXAM DESCRIPTION: U/S ABDOMEN LIMITED W/O DOP COMPLETED DATE/TIME: 06/29/2017 12:16 am REASON FOR STUDY: abd pain COMPARISON: None. TECHNIQUE: Dynamic and static grayscale images acquired of the abdomen and recorded on PACS. Additio nal selected color Doppler and spectral images recorded. LIMITATIONS: None. FINDINGS: PANCREAS: No masses. Visualized pancreatic duct normal caliber. LIVER: 21.5 cm. Fatty infiltration. No focal masses. LIVER VASCULATURE: Normal directional flow of the main portal vein and hepatic veins. GALLBLADDER: Neck in multiple stones. No wall thickening. ULTRASOUND-DETECTED SOLO'S SIGN: Negative. INTRAHEPATIC DUCTS AND COMMON DUCT: CBD and intrahepatic ducts normal caliber. No filling defects. INFERIOR VENA CAVA: Normal flow. AORTA: No aneurysm. RIGHT KIDNEY: Normal size. Normal echogenicity. No solid or suspicious masses. No hydronephrosis. No calcifications. PERITONEAL AND RIGHT PLEURAL SPACE: No ascites or effusions. OTHER: No other significant findings. IMPRESSION: Hepatic steatosis. Hepatomegaly. Gallstones. TECHNICAL DOCUMENTATION: JOB ID: [id number] All Rights Reserved
[2017-06-29] MEDS ORDERED: NORMAL SALINE 1000 ML 1,000 ML IV PRN (01:57)
[2017-06-29] MEDS ORDERED: GLUCAGON,HUMAN RECOMB 1 MG INJ SUBCUT PRN (02:01)
[2017-06-29] MEDS ORDERED: DEXTROSE 40% GEL 15 GM TUBE PO PRN ×2 (02:01)
[2017-06-29] MEDS ORDERED: DEXTROSE 50%-WATER 25 GM/50 ML DISP.SYRIN IV PRN ×2 (02:01)
[2017-06-29] MEDS: HYDROMORPHONE HCL INJ/PF 2 MG/ML AMPULE IV PRN ×4 (02:57→19:52)
[2017-06-29] MEDS: NORMAL SALINE 1000 ML 1,000 ML IV PRN ×3 (02:57→17:04)
[2017-06-29 05:37] LABS: ABSOLUTE LYMPHOCYTES (AUTO) 1.6 10^3/uL (0.5-4.7); ABSOLUTE MONOCYTES (AUTO) 0.3 10^3/uL (0.1-1.4); ABSOLUTE NEUT (AUTO) 2.7 10^3/uL (1.7-8.2); BASOPHILS % (AUTO) 0.6 % (0-2); EOSINOPHILS % (AUTO) 0.2 % (0-6); HEMATOCRIT 31.2 % (36.0-47.0); HEMOGLOBIN 10.1 g/dL (12.0-15.5); HGB HCT DIFFERENCE -0.9; LYMPHOCYTES % (AUTO) 34.8 % (13-45); MEAN CORPUSCULAR HEMOGLOBIN 25.3 pg (27.0-33.4); MEAN CORPUSCULAR HGB CONC 32.3 g/dL (32.0-36.0); MEAN CORPUSCULAR VOLUME 78 fl (80-97); MONOCYTES % (AUTO) 6.2 % (3-13); RED BLOOD COUNT 3.98 10^6/uL (3.72-5.28); RED CELL DISTRIBUTION WIDTH 15.3 % (11.5-14.0); SEGMENTED NEUTROPHILS % (AUTO) 58.2 % (42-78); WHITE BLOOD COUNT 4.7 10^3/uL (4.0-10.5)
[2017-06-29 05:41] LABS: ALANINE AMINOTRANSFERASE 66 U/L (9-52); ALBUMIN 3.4 g/dL (3.5-5.0); ALKALINE PHOSPHATASE 53 U/L (38-126); ANION GAP 13 (5-19); ASPARTATE AMINO TRANSFERASE 89 U/L (14-36); BILIRUBIN,DIRECT 0.3 mg/dL (0.0-0.4); BILIRUBIN,TOTAL 0.3 mg/dL (0.2-1.3); BLOOD UREA NITROGEN 11 mg/dL (7-20); CALCIUM 8.4 mg/dL (8.4-10.2); CARBON DIOXIDE 21 mmol/L (22-30); CHLORIDE 108 mmol/L (98-107); CREATININE RESULT 0.65 mg/dL (0.52-1.25); GLUCOSE 140 mg/dL (75-110); LIPASE 472.5 U/L (23-300); SODIUM 141.5 mmol/L (137-145); TOTAL PROTEIN 7.6 g/dL (6.3-8.2)
[2017-06-29 05:53] LABS: POTASSIUM 3.6 mmol/L (3.6-5.0)
[2017-06-29] MEDS: ONDANSETRON HCL INJ/PF 4 MG/2 ML SDV IV PRN ×2 (09:02→19:53)
--- NOTE | 2017-06-29 09:21 | PDOC PROGRESS REPORT ---
Subjective Progress Note for:: 06/29/17 Subjective:: Abdominal pain improved but still present. 3 out of 5 in severity. Physical Exam Vital Signs: Temp Pulse Resp BP Pulse Ox 98.5 F 84 16 141/86 H 100 06/29/17 06:01 06/29/17 06:01 06/29/17 06:01 06/29/17 06:01 06/29/17 06:01 Intake & Output 06/28/17 06/29/17 06/30/17 06:59 06:59 06:59 Intake Total 600 Output Total 200 Balance 400 Weight 116.7 kg General appearance: PRESENT: no acute distress, cooperative Respiratory exam: PRESENT: clear to auscultation jay Cardiovascular exam: PRESENT: RRR GI/Abdominal exam: PRESENT: other - Soft, mildly distended, tenderness across the epigastric region without peritoneal signs. Extremities exam: PRESENT: other - No swelling Results Laboratory Results: 06/29/17 05:12 06/29/17 05:12 06/29/17 06/29/17 05:12 05:12 WBC 4.7 RBC 3.98 Hgb 10.1 L Hct 31.2 L MCV 78 L MCH 25.3 L MCHC 32.3 RDW 15.3 H Plt Count 281 Seg Neutrophils % 58.2 Lymphocytes % 34.8 Monocytes % 6.2 Eosinophils % 0.2 Basophils % 0.6 Absolute Neutrophils 2.7 Absolute Lymphocytes 1.6 Absolute Monocytes 0.3 Absolute Eosinophils 0.0 Absolute Basophils 0.0 Sodium 141.5 Potassium 3.6 D Chloride 108 H Carbon Dioxide 21 L Anion Gap 13 BUN 11 Creatinine 0.65 Est GFR ( Amer) > 60 Est GFR (Non-Af Amer) > 60 Glucose 140 H Calcium 8.4 Total Bilirubin 0.3 AST 89 H ALT 66 H Alkaline Phosphatase 53 Total Protein 7.6 Albumin 3.4 L Lipase 472.5 H Impressions: Abdomen Ultrasound 06/28/17 23:04 IMPRESSION: Hepatic steatosis. Hepatomegaly. Gallstones. Assessment & Plan - Diagnosis (1) Gallstone pancreatitis Is this a current diagnosis for this admission?: Yes Plan: Still with evidence of pancreatitis with abdominal pain and elevated lipase. Will await pancreatitis to settle down for a safe laparoscopic cholecystectomy. Encourage ambulation
[2017-06-30] MEDS: NORMAL SALINE 1000 ML 1,000 ML IV PRN (02:11)
[2017-06-30] MEDS: HYDROMORPHONE HCL INJ/PF 2 MG/ML AMPULE IV PRN ×3 (04:58→19:06)
[2017-06-30 05:49] LABS: ABSOLUTE MONOCYTES (AUTO) 0.3 10^3/uL (0.1-1.4); ABSOLUTE NEUT (AUTO) 1.9 10^3/uL (1.7-8.2); BASOPHILS % (AUTO) 1.1 % (0-2); EOSINOPHILS % (AUTO) 0.4 % (0-6); HEMATOCRIT 31.4 % (36.0-47.0); HEMOGLOBIN 10.3 g/dL (12.0-15.5); HGB HCT DIFFERENCE -0.5; LYMPHOCYTES % (AUTO) 47.1 % (13-45); MEAN CORPUSCULAR HEMOGLOBIN 25.6 pg (27.0-33.4); MEAN CORPUSCULAR HGB CONC 32.9 g/dL (32.0-36.0); MEAN CORPUSCULAR VOLUME 78 fl (80-97); RED BLOOD COUNT 4.04 10^6/uL (3.72-5.28); RED CELL DISTRIBUTION WIDTH 15.2 % (11.5-14.0); SEGMENTED NEUTROPHILS % (AUTO) 45.4 % (42-78); WHITE BLOOD COUNT 4.3 10^3/uL (4.0-10.5)
[2017-06-30 05:52] LABS: ALANINE AMINOTRANSFERASE 60 U/L (9-52); ALBUMIN 3.2 g/dL (3.5-5.0); ALKALINE PHOSPHATASE 53 U/L (38-126); ANION GAP 11 (5-19); ASPARTATE AMINO TRANSFERASE 62 U/L (14-36); BILIRUBIN,DIRECT 0.3 mg/dL (0.0-0.4); BILIRUBIN,TOTAL 0.4 mg/dL (0.2-1.3); BLOOD UREA NITROGEN 8 mg/dL (7-20); CALCIUM 8.8 mg/dL (8.4-10.2); CARBON DIOXIDE 21 mmol/L (22-30); CHLORIDE 108 mmol/L (98-107); CREATININE RESULT 0.71 mg/dL (0.52-1.25); GLUCOSE 87 mg/dL (75-110); LIPASE 491.3 U/L (23-300); POTASSIUM 4.4 mmol/L (3.6-5.0); SODIUM 139.8 mmol/L (137-145); TOTAL PROTEIN 7.4 g/dL (6.3-8.2)
[2017-06-30] MEDS ORDERED: MIDAZOLAM 2 MG/2 ML INJ ONE (09:41)
[2017-06-30] MEDS ORDERED: FENTANYL CITRATE INJ/PF 250 MCG/5 ML AMPULE ONE (09:41)
[2017-06-30] MEDS ORDERED: PROPOFOL INJ 200 MG/20 ML VIAL IV ONE (09:42)
[2017-06-30] MEDS ORDERED: IBUPROFEN INJ 800 MG/8 ML VIAL IV ONE (09:42)
[2017-06-30] MEDS ORDERED: ACETAMINOPHEN 100 ML IV ONE (09:42)
[2017-06-30] MEDS ORDERED: BUPIVACAINE HCL 0.25% /EPINEPHRINE INJ/PF 30 ML SDV ONE (09:46)
[2017-06-30] MEDS ORDERED: CEFAZOLIN INJ 1 GM VIAL ONE (09:56)
[2017-06-30] MEDS ORDERED: HYDROMORPHONE HCL INJ/PF 2 MG/ML AMPULE ONE ×2 (10:00→13:22)
[2017-06-30] MEDS ORDERED: FAMOTIDINE INJ/PF 20 MG/2 ML SDV IV ONE (10:07)
[2017-06-30] MEDS ORDERED: DIPHENHYDRAMINE HCL 50 MG/ML VIAL IV PRN (11:14)
[2017-06-30] MEDS ORDERED: PROMETHAZINE HCL INJ 25 MG/1 ML VIAL IV PRN ×2 (11:14)
--- NOTE | 2017-06-30 14:08 | OPERATIVE REPORT E ---
Operative Report NAME: DMITRY PASTOR : 1985 AGE: 31Y DATE OF SURGERY: 06/30/2017 ROOM: 307 PREOPERATIVE DIAGNOSES: 1. CHOLELITHIASIS. 2. GALLSTONE PANCREATITIS. POSTOPERATIVE DIAGNOSES: 1. CHOLELITHIASIS. 2. GALLSTONE PANCREATITIS. OPERATION: Laparoscopic cholecystectomy and intraoperative cholangiogram. SURGEON: KRISTINE CHOPRA M.D. ANESTHESIA: General INDICATIONS: This is a 31-year-old female admitted for about 5-day duration of mid back pains and epigastric pains and right lower quadrant pains. Ultrasound showed gallstones and laboratory showed elevated lipase to 900. LFTs slightly elevated. Yesterday her enzymes came down. LFTs almost down to normal and then lipase came down to around 400. Also this morning, the day of surgery, patient essentially with just minimal back pains, no abdominal tenderness. DESCRIPTION OF PROCEDURE: After adequate general anesthesia, the patient was placed in supine position and her abdomen prepped and draped in the usual sterile fashion. An infraumbilical elliptical incision was made and the fascia subsequently identified and grasped with Galina clamps and divided within the Galina clamps. A Isidro trocar was then inserted into the abdominal cavity and CO2 insufflated up to a pressure of 15 mmHg. The camera was then inserted and three other trocars were placed under direct vision, a 12 mm in the subxiphoid and two 5 mm trocars in the right upper quadrant. The gallbladder was then identified and noted to be free of adhesions. The wall may be just a little bit thickened. The cystic duct was then dissected and noted to be quite small. The cystic artery was then identified and clipped with hemoclips and divided with the use of Harmonic shanda. The junction of the cystic duct and the gallbladder was then clipped and then opening made in the cystic duct. A cholangiogram was then performed through a catheter in the cystic duct, and a cholangiogram unofficially showed essentially normal findings. Next, the cystic duct was then clipped with hemoclips and divided within the hemoclips. The gallbladder was then dissected off the liver bed with the use of Harmonic shanda. Liver bed hemostasis further obtained with the use of hook cautery. The gallbladder was then placed in the Endobag and pulled out through the subxiphoid port. The gallbladder had at least one palpable stone about 6-mm in diameter. The gallbladder bed was then checked and irrigated and no evidence of oozing noted. Next, all the trocars were removed and CO2 allowed to come out all the trocar sites. The fascial defect of the umbilical area was then closed with a [id number] suture using 0 Vicryl. There might be a little umbilical hernia since a piece of omentum appeared to be plastered at this area. Omentum was not taken down. A single suture of 0 Vicryl was then placed at the subxiphoid fascial defect site. Next, all the fascial defects were injected with Marcaine with epinephrine and the skin incisions also injected. Next, all the skin incisions were then closed with running subcuticular using 4-0 Vicryl undyed. Sterile Dermabond dressings were used over the incision sites. Patient tolerated the procedure well. Needle, instrument, and sponge counts were all correct and estimated blood loss about 20 mL. Patient then brought to the recovery room in satisfactory condition. DICTATING PHYSICIAN: KRISTINE CHOPRA M.D. [id number] PHY#: [id number] ID: [id number] JOB#: [id number] ACCT: [id number] cc:KRISTINE CHOPRA M.D. >
[2017-06-30] MEDS ORDERED: METOCLOPRAMIDE HCL INJ/PF 10 MG/2 ML SDV ONE (14:35)
[2017-06-30] MEDS ORDERED: SUCCINYLCHOLINE CHLORIDE INJ 200 MG/10 ML VIAL ONE (14:35)
[2017-06-30] MEDS ORDERED: LIDOCAINE 2% INJ-PF (20 MG/ML) 10 ML AMPUL ONE (14:35)
[2017-06-30] MEDS ORDERED: DEXAMETHASONE SOD PHOSPHATE INJ 4 MG/1 ML VIAL ONE (14:35)
[2017-06-30] MEDS ORDERED: ONDANSETRON HCL INJ/PF 4 MG/2 ML SDV ONE (14:35)
[2017-06-30] MEDS ORDERED: GLYCOPYRROLATE INJ 0.4 MG/2 ML VIAL ONE (14:35)
[2017-06-30] MEDS ORDERED: ROCURONIUM BROMIDE INJ 50 MG/5 ML VIAL IV ONE (14:35)
[2017-06-30] MEDS: ONDANSETRON HCL INJ/PF 4 MG/2 ML SDV IV PRN (14:52)
--- NOTE | 2017-06-30 15:10 | RADIOLOGY REPORT (SQ) ---
EXAM DESCRIPTION: CHOLANGIOGRAM OPERATIVE COMPLETED DATE/TIME: 06/30/2017 2:59 pm REASON FOR STUDY: CHOLANGIOGRAM IN OR COMPARISON: Abdominal ultrasound 06/28/2017 FLUOROSCOPY TIME: 1.3 minutes 10 series of digital images saved to PACS. TECHNIQUE: Cinegraphic images were obtained from an intraoperative cholangiogram. LIMITATIONS: None. FINDINGS: There is opacification of the bile ducts, cystic duct remnants and second portion of the d uodenum without evidence of fixed filling defect or significant extravasation. IMPRESSION: INTRAOPERATIVE CHOLANGIOGRAM. COMMENT: Quality ID [id number]: Final reports for procedures using fluoroscopy that document radiation exp osure indices, or exposure time and number of fluorographic images (if radiation exposure indices are not available) TECHNICAL DOCUMENTATION: JOB ID: [id number]- All Rights Reserved
[2017-06-30] MEDS: OXYCODONE-ACETAMINOPHEN 5-325 MG TABLET PO PRN (17:26)
[2017-06-30] MEDS: CEFAZOLIN 1 GM/D5W RTU 1 GM/50 ML RTUPB IV SCH (17:29)
[2017-07-01] MEDS: OXYCODONE-ACETAMINOPHEN 5-325 MG TABLET PO PRN ×4 (00:07→22:50)
[2017-07-01] MEDS: CEFAZOLIN 1 GM/D5W RTU 1 GM/50 ML RTUPB IV SCH (02:00)
[2017-07-01 05:05] LABS: ABSOLUTE LYMPHOCYTES (AUTO) 2.3 10^3/uL (0.5-4.7); ABSOLUTE MONOCYTES (AUTO) 0.5 10^3/uL (0.1-1.4); ABSOLUTE NEUT (AUTO) 4.9 10^3/uL (1.7-8.2); BASOPHILS % (AUTO) 0.2 % (0-2); EOSINOPHILS % (AUTO) 0.1 % (0-6); HEMATOCRIT 30.6 % (36.0-47.0); HGB HCT DIFFERENCE -0.6; MEAN CORPUSCULAR HEMOGLOBIN 25.5 pg (27.0-33.4); MEAN CORPUSCULAR HGB CONC 32.7 g/dL (32.0-36.0); MEAN CORPUSCULAR VOLUME 78 fl (80-97); MONOCYTES % (AUTO) 6.4 % (3-13); RED BLOOD COUNT 3.92 10^6/uL (3.72-5.28); RED CELL DISTRIBUTION WIDTH 15.3 % (11.5-14.0); SEGMENTED NEUTROPHILS % (AUTO) 63.3 % (42-78); WHITE BLOOD COUNT 7.8 10^3/uL (4.0-10.5)
[2017-07-01 05:26] LABS: ALANINE AMINOTRANSFERASE 68 U/L (9-52); ALBUMIN 3.3 g/dL (3.5-5.0); ALKALINE PHOSPHATASE 56 U/L (38-126); ANION GAP 10 (5-19); ASPARTATE AMINO TRANSFERASE 62 U/L (14-36); BILIRUBIN,DIRECT 0.4 mg/dL (0.0-0.4); BILIRUBIN,TOTAL 0.4 mg/dL (0.2-1.3); BLOOD UREA NITROGEN 6 mg/dL (7-20); CALCIUM 8.9 mg/dL (8.4-10.2); CARBON DIOXIDE 22 mmol/L (22-30); CHLORIDE 107 mmol/L (98-107); CREATININE RESULT 0.66 mg/dL (0.52-1.25); GLUCOSE 107 mg/dL (75-110); LIPASE 269.8 U/L (23-300); SODIUM 139.3 mmol/L (137-145); TOTAL PROTEIN 7.6 g/dL (6.3-8.2)
[2017-07-01] MEDS: NORMAL SALINE 1000 ML 1,000 ML IV PRN ×2 (08:05→22:52)
[2017-07-01] MEDS ORDERED: FUROSEMIDE 20 MG TABLET PO ONE (21:42)
[2017-07-01] MEDS: NIFEDIPINE 30 MG TAB.ER.24 PO SCH (22:47)
[2017-07-01 22:51] LABS: APPEARANCE,URINE CLEAR; BILIRUBIN,URINE NEGATIVE (NEGATIVE); GLUCOSE, URINE NEGATIVE (NEGATIVE); KETONES,URINE NEGATIVE (NEGATIVE); LEUKOCYTE ESTERASE,URINE NEGATIVE (NEGATIVE); NITRITE,URINE NEGATIVE (NEGATIVE); PROTEIN,URINE NEGATIVE (NEGATIVE); URINE SPECIFIC GRAVITY 1.005; UROBILINOGEN,URINE NEGATIVE mg/dL (<2.0)
[2017-07-01 22:55] LABS: URINE CREATININE 41.7 mg/dL (16-327); URINE PROTEIN 22.3 mg/dL (<12)
[2017-07-01] MEDS ORDERED: DOCUSATE SODIUM 100 MG CAPSULE PO ONE (23:00)
--- NOTE | 2017-07-02 00:19 | PDOC CONSULTATION ---
Consultation Consult Date: 07/01/17 Attending physician:: KRISTINE CHOPRA Consult reason:: HTN History of Present Illness Admission Date/PCP: 06/29/17 02:01 JACK LEE History of Present Illness: DMITRY PASTOR is a 31 year old female who is part of having had a approximately 2 months ago who presented to the hospital with complaints of abdominal pain and was found to have cholecystitis. Patient is undergone a cholecystectomy. This is been relatively uneventful, but patient does have significant elevation of her blood pressure. She reports that she has had elevated blood pressure in the past, but was not on medication for this and did not take anything during her . She does report a history of gestational diabetes. She reports she is passing flatus but is yet to have a bowel movement. Past Medical History Cardiac Medical History: Reports: Hypertension - no meds Denies: Coronary Artery Disease, Myocardial Infarction, Heart Murmur Pulmonary Medical History: Denies: Asthma, Bronchitis, Chronic Obstructive Pulmonary Disease (COPD), Pneumonia Neurological Medical History: Denies: Seizures Endocrine Medical History: Reports: Gestational Diabetes, Obesity Denies: Hyperthyroidism, Hypothyroidism Malignancy Medical History: Denies: Breast Cancer, Cervical Cancer, Ovarian Cancer Musculoskeltal Medical History: Denies: Arthritis Hematology: Reports: Anemia Past Surgical History Past Surgical History: Reports: Section, Cholecystectomy Denies: Hysterectomy Social History Smoking Status: Never Smoker Frequency of Alcohol Use: Social Hx Recreational Drug Use: No Hx Prescription Drug Abuse: No - Advance Directive Resuscitation Status: Full Code Surrogate healthcare decision maker:: MotherUrszula Family History Family History: CAD, DM, Hypertension Parental Family History Reviewed: Yes Children Family History Reviewed: Yes Sibling(s) Family History Reviewed.: Yes Medication/Allergy Home Medications: No Home Medications 06/29/17 Allergies/Adverse Reactions: No Known Allergies Allergy (Unverified 06/18/17 01:37) Review of Systems Constitutional: ABSENT: chills, fever(s), headache(s), weight gain, weight loss Eyes: ABSENT: visual disturbances Ears: ABSENT: hearing changes Cardiovascular: ABSENT: chest pain, dyspnea on exertion, edema, orthropnea, palpitations Respiratory: ABSENT: cough, hemoptysis Gastrointestinal: PRESENT: abdominal pain, bloating. ABSENT: constipation, diarrhea, hematemesis, hematochezia, nausea, vomiting Genitourinary: ABSENT: dysuria, hematuria Musculoskeletal: ABSENT: joint swelling Integumentary: ABSENT: rash, wounds Neurological: ABSENT: abnormal gait, abnormal speech, confusion, dizziness, focal weakness, syncope Psychiatric: ABSENT: anxiety, depression, homidical ideation, suicidal ideation Endocrine: ABSENT: cold intolerance, heat intolerance, polydipsia, polyuria Hematologic/Lymphatic: ABSENT: easy bleeding, easy bruising Physical Exam Vital Signs: Temp Pulse Resp BP Pulse Ox 98.7 F 72 18 160/92 H 100 07/01/17 15:42 07/01/17 19:00 07/01/17 15:42 07/01/17 15:42 07/01/17 15:42 Intake & Output 06/30/17 07/01/17 07/02/17 06:59 06:59 05:59 Intake Total 5033 5020 2218 Output Total 0 820 1000 Balance 5033 4200 1218 Weight 118.6 kg 115.6 kg General appearance: PRESENT: no acute distress, morbidly obese, well-developed, well-nourished Head exam: PRESENT: atraumatic, normocephalic Eye exam: PRESENT: conjunctiva pink, EOMI, PERRLA. ABSENT: scleral icterus Ear exam: PRESENT: normal external ear exam Mouth exam: PRESENT: moist, tongue midline Neck exam: ABSENT: JVD, lymphadenopathy, thyromegaly, tracheal deviation Respiratory exam: PRESENT: clear to auscultation jay. ABSENT: rales, rhonchi, wheezes Cardiovascular exam: PRESENT: RRR. ABSENT: diastolic murmur, rubs, systolic murmur Pulses: PRESENT: normal dorsalis pedis pul Vascular exam: PRESENT: normal capillary refill GI/Abdominal exam: PRESENT: normal bowel sounds, soft. ABSENT: distended, guarding, mass, organolmegaly, rebound, tenderness Rectal exam: PRESENT: deferred Extremities exam: PRESENT: full ROM, +1 edema. ABSENT: calf tenderness, clubbing Neurological exam: PRESENT: alert, awake, oriented to person, oriented to place , oriented to time, oriented to situation, CN II-XII grossly intact. ABSENT: motor sensory deficit Psychiatric exam: PRESENT: appropriate affect, normal mood. ABSENT: homicidal ideation, suicidal ideation Skin exam: PRESENT: dry, intact, warm. ABSENT: cyanosis, rash Results Laboratory Results: 07/01/17 04:35 07/01/17 04:35 07/01/17 07/01/17 04:35 04:35 WBC 7.8 RBC 3.92 Hgb 10.0 L Hct 30.6 L MCV 78 L MCH 25.5 L MCHC 32.7 RDW 15.3 H Plt Count 262 Seg Neutrophils % 63.3 Lymphocytes % 30.0 Monocytes % 6.4 Eosinophils % 0.1 Basophils % 0.2 Absolute Neutrophils 4.9 Absolute Lymphocytes 2.3 Absolute Monocytes 0.5 Absolute Eosinophils 0.0 Absolute Basophils 0.0 Sodium 139.3 Potassium 4.0 Chloride 107 Carbon Dioxide 22 Anion Gap 10 BUN 6 L Creatinine 0.66 Est GFR ( Amer) > 60 Est GFR (Non-Af Amer) > 60 Glucose 107 Calcium 8.9 Total Bilirubin 0.4 AST 62 H ALT 68 H Alkaline Phosphatase 56 Total Protein 7.6 Albumin 3.3 L Lipase 269.8 Impressions: Abdomen Ultrasound 06/28/17 23:04 IMPRESSION: Hepatic steatosis. Hepatomegaly. Gallstones. Cholangiogram 06/30/17 00:00 IMPRESSION: INTRAOPERATIVE CHOLANGIOGRAM. Assessment & Plan - Diagnosis (1) Hypertensive urgency Is this a current diagnosis for this admission?: Yes Plan: Will initiate patient on nifedipine and hydrochlorothiazide. She reports she is using Depo-Provera for control and considering a Mirena. Patient is encouraged to eat a 2000 mg sodium restricted diet and to get a moderate amount of exercise when physically able. (2) Gallstone pancreatitis Is this a current diagnosis for this admission?: Yes Plan: Defer treatment of this to the primary team. Patient is tolerating clear liquids. Defer any diagnoses/complications relating to her cholecystectomy to the primary team. (3) Anemia Qualifiers: Anemia type: iron deficiency Iron deficiency anemia type: unspecified iron deficiency Qualified Code(s): D50.9 - Iron deficiency anemia, unspecified Is this a current diagnosis for this admission?: Yes (4) Morbid obesity with BMI of 45.0-49.9, adult Is this a current diagnosis for this admission?: Yes Plan: Encourage weight loss (5) GDM, class A1 Is this a current diagnosis for this admission?: Yes Plan: Have encouraged patient to avoid concentrated sweets and to follow-up on this as an outpatient. - Time Time Spent: 30 to 50 Minutes Medications reviewed and adjusted accordingly: Yes Anticipated discharge: Home
[2017-07-02] MEDS: NIFEDIPINE 30 MG TAB.ER.24 PO SCH (09:09)
--- NOTE | 2017-07-02 09:25 | RADIOLOGY REPORT (SQ) ---
EXAM DESCRIPTION: CHEST PA/LAT COMPLETED DATE/TIME: 07/02/2017 8:48 am REASON FOR STUDY: fever COMPARISON: Chest films 06/12/2008, 02/22/2008 EXAM PARAMETERS: NUMBER OF VIEWS: two views TECHNIQUE: Digital Frontal and Lateral radiographic views of the chest acquired. RADIATION DOSE: NA LIMITATIONS: none FINDINGS: LUNGS AND PLEURA: Minimal left retrocardiac airspace disease atelectasis versus pneumonia. Right lung clear. No pleural effusions. No pneumothorax. No pulmonary nodules. MEDIASTINUM AND HILAR STRUCTURES: No masses or contour abnormalities. HEART AND VASCULAR STRUCTURES: Heart normal size. No evidence for failure. BONES: No acute findings. HARDWARE: Clips right upper quadrant post cholecystectomy OTHER: No other significant finding. IMPRESSION: Patchy left basilar airspace disease atelectasis versus pneumonia TECHNICAL DOCUMENTATION: JOB ID: [id number] [employer]- All Rights Reserved
[2017-07-02] MEDS ORDERED: DOCUSATE SODIUM 100 MG CAPSULE PO SCH (10:00)
[2017-07-02] MEDS ORDERED: HYDROCHLOROTHIAZIDE 25 MG TABLET PO SCH (10:00)
[2017-07-02] MEDS: OXYCODONE-ACETAMINOPHEN 5-325 MG TABLET PO PRN (12:36)
[2017-07-02 13:51] VITALS: BP 157/91
--- NOTE | 2017-08-04 08:27 | PDOC H&P ---
History of Present Illness Admission Date/PCP: 06/29/17 02:01 JACK LEE Patient complains of: Abdominal and back pains History of Present Illness: This is a 31-year-old female 2 weeks noted to have abdominal pains and back pains for the past 2-3 days. She went to the emergency room ultrasound of the gallbladder showed gallstones. LFTs were slightly elevated and lipase elevated to 900. She was then admitted for cholelithiasis and gallstone pancreatitis and for possible laparoscopic cholecystectomy with cholangiogram Past Medical History Cardiac Medical History: Reports: Hypertension - no meds Denies: Coronary Artery Disease, Myocardial Infarction, Heart Murmur Pulmonary Medical History: Denies: Asthma, Bronchitis, Chronic Obstructive Pulmonary Disease (COPD), Pneumonia Neurological Medical History: Denies: Seizures Endocrine Medical History: Reports: Gestational Diabetes, Obesity Denies: Hyperthyroidism, Hypothyroidism Malignancy Medical History: Denies: Breast Cancer, Cervical Cancer, Ovarian Cancer Musculoskeltal Medical History: Denies: Arthritis Hematology: Reports: Anemia Past Surgical History Past Surgical History: Reports: Section, Cholecystectomy Denies: Hysterectomy Social History Smoking Status: Never Smoker Frequency of Alcohol Use: Social Hx Recreational Drug Use: No Hx Prescription Drug Abuse: No - Advance Directive Resuscitation Status: Full Code Family History Family History: CAD, DM, Hypertension Parental Family History Reviewed: Yes Children Family History Reviewed: No Sibling(s) Family History Reviewed.: No Medication/Allergy Home Medications: No Home Medications 06/29/17 Allergies/Adverse Reactions: No Known Allergies Allergy (Unverified 06/18/17 01:37) Review of Systems Constitutional: PRESENT: other - Denies any fever or weight loss. Denies any visual or hearing changes. Denies any sore throat. Denies any chest pains no shortness of breath. Gastrointestinal: PRESENT: as per HPI, abdominal pain, nausea Genitourinary: PRESENT: other - No dysuria Musculoskeletal: PRESENT: other - No muscle weakness Integumentary: PRESENT: other - No skin rash Neurological: PRESENT: other - No seizures Psychiatric: PRESENT: other - No hallucinations Endocrine: PRESENT: other - No polyuria polyuria no polydipsia Hematologic/Lymphatic: PRESENT: other - No easy bruisability or lymphadenopathy Physical Exam Vital Signs: Temp Pulse Resp BP Pulse Ox 99.2 F 91 18 157/91 H 100 07/02/17 13:47 07/02/17 13:47 07/02/17 13:47 07/02/17 13:47 07/02/17 13:47 General appearance: PRESENT: mild distress Head exam: PRESENT: atraumatic, normocephalic Eye exam: PRESENT: conjunctiva pink Ear exam: PRESENT: normal external ear exam Mouth exam: PRESENT: moist, tongue midline Neck exam: PRESENT: full ROM Respiratory exam: PRESENT: clear to auscultation jay Cardiovascular exam: PRESENT: RRR GI/Abdominal exam: PRESENT: soft, tenderness - Tenderness in the epigastric and right upper quadrant Rectal exam: PRESENT: deferred Extremities exam: PRESENT: full ROM, other Musculoskeletal exam: PRESENT: full ROM Neurological exam: PRESENT: alert, oriented to person, oriented to place, oriented to time, oriented to situation Psychiatric exam: PRESENT: appropriate affect Skin exam: PRESENT: normal color, warm Results Laboratory Results: 07/01/17 04:35 07/01/17 04:35 Impressions: Abdomen Ultrasound 06/28/17 23:04 IMPRESSION: Hepatic steatosis. Hepatomegaly. Gallstones. Cholangiogram 06/30/17 00:00 IMPRESSION: INTRAOPERATIVE CHOLANGIOGRAM. Chest X-Ray 07/01/17 00:00 IMPRESSION: Patchy left basilar airspace disease atelectasis versus pneumonia Assessment & Plan - Time Time Spent: 30 to 50 Minutes - Inpatient Certification Medical Necessity: Need For IV Fluids, Need for Pain Control, Need for IV Antibiotics, Need for Surgery - Plan Summary Plan Summary: For laparoscopic cholecystectomy with intraoperative cholangiogram when the pancreatic enzymes and liver functions trend down
--- NOTE | 2017-08-04 09:39 | DISCHARGE SUMMARY E ---
Discharge Summary NAME: DMITRY PASTOR : 1985 AGE: 31Y ADMITTED: 06/29/2017 DISCHARGED: 07/02/2017 PROCEDURE DONE: Laparoscopic cholecystectomy with intraoperative cholangiogram. FINAL DIAGNOSES: 1. Gallstone pancreatitis. 2. Elevated LFTs. 3. Cholelithiasis. HOSPITAL COURSE: Patient admitted to the emergency room dry cleaner of 06/29/2017 for abdominal pains with elevated lipase and LFTs. On 06/30/2017, lipase came down to almost normal at 400 and LFTs also came down. Patient also with minimal back pains and no abdominal pains. Patient underwent laparoscopic cholecystectomy and intraoperative cholangiogram on 06/30/2017. Cholangiogram showed no stones in the common duct. Postoperatively, patient did well and discharge improved on 07/02/2017 with the above final diagnosis. Patient to be followed in the surgical clinic in 2 weeks. Patient advised not to do any lifting more than 15 pounds for the next week. Patient can have a regular diet. DICTATING PHYSICIAN: KRISTINE CHOPRA M.D. [id number] PHY#: [id number] ID: [id number] JOB#: [id number] ACCT: [id number] cc:KRISTINE CHOPRA M.D. >
== END 2017-07-02 17:38 | disposition home or self-care (01) | DRG 418 ==
LOC: ER 19:43 → UNDOADMIN 06-29 01:10 → EH 06-29 01:10 → 3N 06-29 04:00
PROVIDERS: ADMIT Surgery; ATTEND Surgery
PROC: BF131ZZ Fluoroscopy of Gallbladder and Bile Ducts using Low Osmolar Contrast (ICD-10-PCS; 2017-06-30)
PROC: 0FT44ZZ Resection of Gallbladder, Percutaneous Endoscopic Approach (ICD-10-PCS; principal; 2017-06-30 10:45)
DX: K85.10 Biliary acute pancreatitis without necrosis or infection (principal); Z68.42 Body mass index [BMI] 45.0-49.9, adult; E66.9 Obesity, unspecified; D50.9 Iron deficiency anemia, unspecified; I16.0 Hypertensive urgency; I10 Essential (primary) hypertension; Z83.3 Family history of diabetes mellitus; Z82.49 Family history of ischemic heart disease and other diseases of the circulatory system
CPT/HCPCS: 36415; 71020; 74300; 76705; 790; 80048; 80053; 80076; 81001; 82570; 82962; 83690; 84156; 84703; 85025; 88304; 94799; 99285; J0131; J0330; J0690; J1100; J1170; J1741; J2250; J2270; J2405; J2704; J2765; J3010; J3490; J7030; Q9967; S0028

== ENCOUNTER 2017-11-30 12:10 | Emergency (ER) | payer MEDICAID ==
[2017-11-30 12:13] VITALS: BP 141/89
[2017-11-30] MEDS ORDERED: IBUPROFEN 600 MG TABLET PO ONE (12:27)
[2017-11-30] MEDS ORDERED: ONDANSETRON 4 MG TAB.RAPDIS PO ONE (12:27)
--- NOTE | 2017-11-30 12:31 | ER Document Report ---
ED General - General Chief Complaint: Nausea/Vomiting/Diarrhea Stated Complaint: VOMITING Time Seen by Provider: 11/30/17 12:22 Notes: 32-year-old female here with complaints of fevers chills cough congestion runny nose sore throat ongoing for the past few days. She went to the urgent care facility and was prescribed Tamiflu but does not know if she tested flu positive. She then started taking the Tamiflu 2 days ago and immediately thereafter started to have several episodes of vomiting and diarrhea with minimal abdominal cramping. She does not currently have any abdominal cramping. Sick contacts include those in her family. TRAVEL OUTSIDE OF THE [place] IN LAST 30 DAYS: No - Related Data Allergies/Adverse Reactions: No Known Allergies Allergy (Verified 11/30/17 12:10) Past Medical History - Social History Smoking Status: Unknown if Ever Smoked Family History: CAD, DM, Hypertension Patient has suicidal ideation: No Patient has homicidal ideation: No - Past Medical History Cardiac Medical History: Reports: Hx Hypertension - no meds Denies: Hx Coronary Artery Disease, Hx Heart Attack, Hx Heart Murmur Pulmonary Medical History: Denies: Hx Asthma, Hx Bronchitis, Hx COPD, Hx Pneumonia Neurological Medical History: Denies: Hx Cerebrovascular Accident, Hx Seizures Endocrine Medical History: Denies: Hx Hyperthyroidism, Hx Hypothyroidism Renal/ Medical History: Reports: Hx Ovarian Cysts. Denies: Hx Peritoneal Dialysis, Hx Pelvic Inflammatory Disease Malignancy Medical History: Denies: Hx Breast Cancer, Hx Cervical Cancer, Hx Ovarian Cancer Musculoskeltal Medical History: Denies Hx Arthritis Past Surgical History: Reports: Hx Section, Hx Cholecystectomy, Hx Dilation and Curettage. Denies: Hx Hysterectomy - Immunizations Hx Diphtheria, Pertussis, Tetanus Vaccination: Yes Review of Systems - Review of Systems Notes: See history of present illness for pertinent positive review of systems; otherwise all review of systems have been reviewed and are negative Physical Exam - Vital signs Vitals: Temp Pulse Resp BP Pulse Ox 100.1 F 114 H 18 141/89 H 97 11/30/17 12:13 11/30/17 12:13 11/30/17 12:13 11/30/17 12:13 11/30/17 12:13 - Notes Notes: PHYSICAL EXAMINATION: GENERAL: Well-appearing and in no acute distress. HEAD: Atraumatic, normocephalic. EYES: Pupils equal round and reactive to light, extraocular movements intact, sclera anicteric, conjunctiva are normal. ENT: nares patent, oropharynx clear without exudates. Moist mucous membranes. NECK: Normal range of motion, supple without lymphadenopathy LUNGS: CTAB and equal. No wheezes rales or rhonchi. HEART: Low 100s minimally tachycardic rate and regular rhythm without murmurs ABDOMEN: Soft, no tenderness. No guarding, no rebound. No facial grimacing/ wincing upon palpation EXTREMITIES: Normal range of motion, no pitting edema. No cyanosis. NEUROLOGICAL: Cranial nerves grossly intact. Normal sensory/motor exams. PSYCH: Normal mood, normal affect. SKIN: Warm, Dry, normal turgor, no rashes or lesions noted Course - Re-evaluation Re-evalutation: 11/30/17 12:31 MEDICAL DECISION MAKING: Concern for medication side effect from the Tamiflu causing symptoms of nausea/ vomiting/diarrhea Will instruct her to stop taking the Tamiflu and prescription Zofran/Phenergan with a dose here Patient understands and agrees to the plan of care - Vital Signs Vital signs: Temp Pulse Resp BP Pulse Ox 100.1 F 114 H 18 141/89 H 97 11/30/17 12:13 11/30/17 12:13 11/30/17 12:13 11/30/17 12:13 11/30/17 12:13 Discharge - Discharge Clinical Impression: Medication side effect Condition: Good Disposition: HOME, SELF-CARE Additional Instructions: Stop taking the Tamiflu. It is likely the cause of your massive vomiting and diarrhea. Use the prescribed Zofran and Phenergan as needed for your symptoms. Continue Tylenol/Motrin for your fevers aches and pains. You were seen in the emergency department at [facility]. If you were given any sedating medications, be sure not to operate heavy machinery (example - driving ) and be sure you are not too sedated to walk appropriately. Please followup with your primary physician in the next few days for further management/ evaluation. Please return to the emergency department for worsening of symptoms or any symptom that you deem to be concerning or life-threatening. Thank you for allowing us to be part of your care. Prescriptions: Ondansetron [Zofran Odt 4 mg Tablet] 1 tab PO Q4H PRN #15 tab.rapdis PRN Reason: For Nausea/Vomiting Promethazine HCl [Phenergan 25 mg Tablet] 1 tab PO Q6H PRN #15 tablet PRN Reason:
== END 2017-11-30 12:34 | disposition home or self-care (01) ==
LOC: ER 12:10
DX: R11.2 Nausea with vomiting, unspecified (principal); R19.7 Diarrhea, unspecified; T37.5X5A Adverse effect of antiviral drugs, initial encounter; R50.9 Fever, unspecified; R05 Cough; R09.89 Other specified symptoms and signs involving the circulatory and respiratory systems; J02.9 Acute pharyngitis, unspecified; I10 Essential (primary) hypertension; R00.0 Tachycardia, unspecified
CPT/HCPCS: 99283; S0119; J3490

== ENCOUNTER 2017-12-02 15:10 | Emergency (ER) | payer MEDICAID ==
[2017-12-02] MEDS ORDERED: IBUPROFEN 800 MG TABLET PO ONE (15:20)
[2017-12-02] MEDS ORDERED: ACETAMINOPHEN 325 MG TABLET PO ONE (15:37)
[2017-12-02] MEDS ORDERED: NORMAL SALINE 1000 ML 1,000 ML IV ONE (15:38)
--- NOTE | 2017-12-02 15:40 | ER Document Report ---
ED Medical Screen (RME) - General Chief Complaint: Nausea/Vomiting/Diarrhea Stated Complaint: FEVER Time Seen by Provider: 12/02/17 15:34 Notes: RME DISCLOSURE I have seen this patient as part of a Rapid Medical Evaluation and, if applicable, placed any initially appropriate orders. The patient will be seen and fully evaluated, including a full history and physical exam, by a provider ( in Main ED or Fast Track) when a room becomes available. 32-year-old female back again to the ED for nausea vomiting diarrhea fevers that initially had developed after she started taking Tamiflu. She was seen in the ED and told to discontinue the Tamiflu as it was thought to be a side effect from the Tamiflu. Her last dose of the Tamiflu was 2-3 days ago. She is back complaining that the prescribed Phenergan was helping in the short-term but that she woke up in the middle of the night and started vomiting again. Also complains of some abdominal cramping in the upper and upper right quadrants. Status post cholecystectomy several months ago. EXAM Tachycardic Epigastric and right upper quadrant tenderness TRAVEL OUTSIDE OF THE [place] IN LAST 30 DAYS: No - Related Data Allergies/Adverse Reactions: No Known Allergies Allergy (Verified 12/02/17 15:16) Past Medical History - Social History Chew tobacco use (# tins/day): No Frequency of alcohol use: None Drug Abuse: None - Past Medical History Cardiac Medical History: Reports: Hx Hypertension - no meds Denies: Hx Coronary Artery Disease, Hx Heart Attack, Hx Heart Murmur Pulmonary Medical History: Denies: Hx Asthma, Hx Bronchitis, Hx COPD, Hx Pneumonia Neurological Medical History: Denies: Hx Cerebrovascular Accident, Hx Seizures Endocrine Medical History: Denies: Hx Hyperthyroidism, Hx Hypothyroidism Renal/ Medical History: Reports: Hx Ovarian Cysts. Denies: Hx Peritoneal Dialysis, Hx Pelvic Inflammatory Disease Malignancy Medical History: Denies: Hx Breast Cancer, Hx Cervical Cancer, Hx Ovarian Cancer Musculoskeltal Medical History: Denies Hx Arthritis Past Surgical History: Reports: Hx Section, Hx Cholecystectomy, Hx Dilation and Curettage. Denies: Hx Hysterectomy - Immunizations Hx Diphtheria, Pertussis, Tetanus Vaccination: Yes History of Influenza Vaccine for 05/2017 - 10/2017 Season: Yes Influenza Administration Date for 05/2017 - 10/2017 Season: 06/18/17 Physical Exam - Vital signs Vitals: Temp Pulse Resp BP Pulse Ox 103.0 F H 113 H 14 140/85 H 98 12/02/17 15:16 12/02/17 15:16 12/02/17 15:16 12/02/17 15:16 12/02/17 15:16 Course - Vital Signs Vital signs: Temp Pulse Resp BP Pulse Ox 103.0 F H 113 H 14 140/85 H 98 12/02/17 15:16 12/02/17 15:16 12/02/17 15:16 12/02/17 15:16 12/02/17 15:16
[2017-12-02 16:02] LABS: ABSOLUTE BASOPHILS # (AUTO) 0.1 10^3/uL (0.0-0.2); ABSOLUTE LYMPHOCYTES (AUTO) 2.2 10^3/uL (0.5-4.7); ABSOLUTE MONOCYTES (AUTO) 1.1 10^3/uL (0.1-1.4); ABSOLUTE NEUT (AUTO) 8.8 10^3/uL (1.7-8.2); BASOPHILS % (AUTO) 0.5 % (0-2); HEMATOCRIT 39.5 % (36.0-47.0); HEMOGLOBIN 12.8 g/dL (12.0-15.5); LYMPHOCYTES % (AUTO) 17.8 % (13-45); MEAN CORPUSCULAR HEMOGLOBIN 25.4 pg (27.0-33.4); MEAN CORPUSCULAR HGB CONC 32.3 g/dL (32.0-36.0); MEAN CORPUSCULAR VOLUME 79 fl (80-97); MONOCYTES % (AUTO) 9.2 % (3-13); PLATELET COUNT 271 10^3/uL (150-450); RED BLOOD COUNT 5.02 10^6/uL (3.72-5.28); RED CELL DISTRIBUTION WIDTH 14.5 % (11.5-14.0); SEGMENTED NEUTROPHILS % (AUTO) 72.5 % (42-78); TOTAL CELLS COUNTED % (AUTO) 100 %; WHITE BLOOD COUNT 12.2 10^3/uL (4.0-10.5)
[2017-12-02 16:23] LABS: ALANINE AMINOTRANSFERASE 33 U/L (9-52); ALKALINE PHOSPHATASE 93 U/L (38-126); ANION GAP 9 (5-19); ASPARTATE AMINO TRANSFERASE 22 U/L (14-36); BILIRUBIN,DIRECT 0.3 mg/dL (0.0-0.4); BILIRUBIN,TOTAL 0.3 mg/dL (0.2-1.3); BLOOD UREA NITROGEN 8 mg/dL (7-20); CALCIUM 9.1 mg/dL (8.4-10.2); CARBON DIOXIDE 30 mmol/L (22-30); CHLORIDE 96 mmol/L (98-107); GLUCOSE 103 mg/dL (75-110); LIPASE 127.3 U/L (23-300); POTASSIUM 4.9 mmol/L (3.6-5.0); SODIUM 135.4 mmol/L (137-145); TOTAL PROTEIN 8.4 g/dL (6.3-8.2)
[2017-12-02 16:38] LABS: APPEARANCE,URINE SLIGHTLY-CLOUDY; BILIRUBIN,URINE NEGATIVE (NEGATIVE); COLOR,URINE YELLOW; GLUCOSE, URINE NEGATIVE (NEGATIVE); KETONES,URINE NEGATIVE (NEGATIVE); LEUKOCYTE ESTERASE,URINE NEGATIVE (NEGATIVE); NITRITE,URINE NEGATIVE (NEGATIVE); PROTEIN,URINE >=500 mg/dL (NEGATIVE); URINE SPECIFIC GRAVITY 1.017
--- NOTE | 2017-12-02 16:58 | RADIOLOGY REPORT (SQ) ---
EXAM DESCRIPTION: CT ABD/PELVIS WITH IV ONLY COMPLETED DATE/TIME: 12/02/2017 4:43 pm REASON FOR STUDY: R sided abd pain n/v/d; eval colitis diverticuliti COMPARISON: None. TECHNIQUE: CT scan of the abdomen and pelvis performed using helical scanning technique with dynamic intravenous contrast injection. No oral contrast. Images reviewed with lung, soft tissue, and bone windows. Reconstructed coronal and sagittal MPR images reviewed. Delayed images for evaluation of the urinary system also acquired. All images stored on PACS. All CT scanners at this facility use dose modulation, iterative reconstruction, and/or weight based d osing when appropriate to reduce radiation dose to as low as reasonably achievable (ALARA). [facility]: Dose Right [facility]: CareDose [facility]: Dose Right [facility]: Teradose 4D [facility]: ReliSen CONTRAST TYPE AND DOSE: contrast/concentration: Isovue 370.00 mg/ml; Total Contrast Delivered: 100.0 ml; Total Saline Delivered: 72.0 ml RENAL FUNCTION: BUN 8 creatinine 0.82. RADIATION DOSE: CT Rad equipment meets quality standard of care and radiation dose reduction techniq ues were employed. CTDIvol: 21.1 - 29.0 mGy. DLP: 2607 mGy-cm.. LIMITATIONS: None. FINDINGS: LOWER CHEST: No significant findings. No nodules or infiltrates. LIVER: Normal size. No masses. No dilated ducts. SPLEEN: Normal size. No focal lesions. PANCREAS: No masses. No significant calcifications. No adjacent inflammation or peripancreatic fluid collections. Pancreatic duct not dilated. GALLBLADDER: Surgically absent. ADRENAL GLANDS: No significant masses or asymmetry. RIGHT KIDNEY AND URETER: No solid masses. No significant calcifications. No hydronephrosis or hyd roureter. LEFT KIDNEY AND URETER: No solid masses. No significant calcifications. No hydronephrosis or hydr oureter. AORTA AND VESSELS: No aneurysm. No dissection. Renal arteries, SMA, celiac without stenosis. RETROPERITONEUM: No retroperitoneal adenopathy, hemorrhage or masses. BOWEL AND PERITONEAL CAVITY: No masses or inflammatory changes. No free fluid or peritoneal masses. APPENDIX: Not visualized. PELVIS: No mass. No free fluid. Normal bladder. ABDOMINAL WALL: No masses. Diastases of the rectus abdominus muscles. BONES: No significant or acute findings. OTHER: No other significant finding. IMPRESSION: NO SIGNIFICANT OR ACUTE FINDING IN THE ABDOMEN OR PELVIS ON CT SCAN WITH IV CONTRAST. TECHNICAL DOCUMENTATION: JOB ID: [id number] Quality ID # [id number]: Final reports with documentation of one or more dose reduction techniques (e.g., Au tomated exposure control, adjustment of the mA and/or kV according to patient size, use of iterative reconstruction technique) 2010 [employer]- All Rights Reserved Reading location - IP/workstation name: [email or web address]
[2017-12-02] MEDS ORDERED: DIPHENHYDRAMINE HCL 50 MG/ML VIAL IV ONE (17:17)
[2017-12-02] MEDS ORDERED: METOCLOPRAMIDE HCL INJ/PF 10 MG/2 ML SDV IV ONE (17:17)
--- NOTE | 2017-12-02 17:17 | ER Document Report ---
ED General - General Mode of Arrival: Ambulatory Information source: Patient TRAVEL OUTSIDE OF THE [place] IN LAST 30 DAYS: No <YE MEJÍA - Last Filed: 12/02/17 17:38> <ESTELLE MEJIA - Last Filed: 12/02/17 23:05> - General Chief Complaint: Nausea/Vomiting/Diarrhea Stated Complaint: FEVER Time Seen by Provider: 12/02/17 15:34 Notes: Patient is a 32 year old female with a history of diabetes presents to the emergency department complaining of flu like symptoms including fever, nausea, vomiting, abdominal pain and cramps and diarrhea. Patient was recently diagnosed with the flu and prescribed Maday Flu as well as Phenagran. Patient states Maday Flu increased her symptoms and she discontinued using it. She also states she has been unable to hold the Phenagran down. Patient states her symptoms have persisted and she has maintained a fever. Patient also complained of hallucinations and lower back pain. Patient denies any blood in vomit or stool. (YE MEJÍA) - Related Data Allergies/Adverse Reactions: No Known Allergies Allergy (Verified 12/02/17 15:16) Past Medical History - General Information source: Patient - Social History Smoking Status: Never Smoker Chew tobacco use (# tins/day): No Frequency of alcohol use: None Drug Abuse: None Family History: CAD, DM, Hypertension Patient has suicidal ideation: No Patient has homicidal ideation: No - Past Medical History Cardiac Medical History: Reports: Hx Hypertension - no meds Endocrine Medical History: Reports: Hx Diabetes Mellitus Type 2 Renal/ Medical History: Reports: Hx Ovarian Cysts Past Surgical History: Reports: Hx Section, Hx Cholecystectomy, Hx Dilation and Curettage - Immunizations Hx Diphtheria, Pertussis, Tetanus Vaccination: Yes <YE MEJÍA - Last Filed: 12/02/17 17:38> Review of Systems - Review of Systems Constitutional: See HPI, Fever EENT: No symptoms reported Cardiovascular: No symptoms reported Respiratory: No symptoms reported Gastrointestinal: See HPI, Abdominal pain, Diarrhea, Nausea Genitourinary: No symptoms reported Female Genitourinary: No symptoms reported Musculoskeletal: See HPI Skin: No symptoms reported Hematologic/Lymphatic: No symptoms reported Neurological/Psychological: See HPI, Hallucinations -: Yes All other systems reviewed and negative <YE MEJÍA - Last Filed: 12/02/17 17:38> Physical Exam <ALFONZOYE - Last Filed: 12/02/17 17:38> <ESTELLE MEJIA - Last Filed: 12/02/17 23:05> - Vital signs Vitals: Temp Pulse Resp BP Pulse Ox 103.0 F H 113 H 14 140/85 H 98 12/02/17 15:16 12/02/17 15:16 12/02/17 15:16 12/02/17 15:16 12/02/17 15:16 - Notes Notes: GENERAL: Alert, interacts well. Appears fatigued. HEAD: Normocephalic, atraumatic. EYES: Pupils equal, round, and reactive to light. Extraocular movements intact. ENT: Oral mucosa moist, tongue midline. NECK: Full range of motion. Supple. Trachea midline. LUNGS: Clear to auscultation bilaterally, no wheezes, rales, or rhonchi. No respiratory distress. HEART: Mild tachycardia. No murmurs, gallops, or rubs. ABDOMEN: Soft, non-tender. Non-distended. Bowel sounds present in all 4 quadrants. EXTREMITIES: Moves all 4 extremities spontaneously. No edema, radial and dorsalis pedis pulses 2/4 bilaterally. No cyanosis. NEUROLOGICAL: Alert and oriented x3. Normal speech. PSYCH: Normal affect, normal mood. SKIN: Warm, dry, normal turgor. No rashes or lesions noted. (YE MEJÍA) Course - Laboratory Result Diagrams: 12/02/17 15:49 12/02/17 15:49 <YE MEJÍA - Last Filed: 12/02/17 17:38> - Laboratory Result Diagrams: 12/02/17 15:49 12/02/17 15:49 <ESTELLE MEJIA - Last Filed: 12/02/17 23:05> - Re-evaluation Re-evalutation: 12/02/17 19:06 CBC shows leukocytosis of 12.2, CMP grossly unremarkable, no renal failure, potassium normal, lipase normal, test negative, urinalysis shows greater than 500 of protein and large blood, patient admits to being on her menstrual cycle, suspect this is contamination rather than true blood, there are 6 squamous epithelial cells. Patient does not have symptoms of a kidney stone. Patient also had a CT scan of the abdomen pelvis performed which did not reveal any signs of obstructive uropathy or hydronephrosis, appendix was not visualized at this time. Abdomen is benign, patient is eating and drinking without difficulty, patient will be discharged to home, given Reglan to take by mouth at home as this is what fixed her vomiting here and asked to return for worsening or persistent symptoms. (ESTELLE MEJIA) - Vital Signs Vital signs: Temp Pulse Resp BP Pulse Ox 99.4 F 90 18 142/80 H 98 12/02/17 19:29 12/02/17 19:29 12/02/17 19:29 12/02/17 19:29 12/02/17 19:29 - Laboratory Laboratory results interpreted by me: 12/02/17 12/02/17 12/02/17 15:49 15:49 15:58 WBC 12.2 H MCV 79 L MCH 25.4 L RDW 14.5 H Absolute Neutrophils 8.8 H Sodium 135.4 L Chloride 96 L Total Protein 8.4 H Urine Protein >=500 H Urine Blood LARGE H Urine Urobilinogen 2.0 H Urine Ascorbic Acid 40 H Discharge <YE MEJÍA - Last Filed: 12/02/17 17:38> <ESTELLE MEJIA - Last Filed: 12/02/17 23:05> - Discharge Clinical Impression: Nausea vomiting and diarrhea Condition: Stable Disposition: HOME, SELF-CARE Additional Instructions: Drink plenty of fluids, if the Reglan does not stop your vomiting please return to the emergency department. Please return if your pain worsens or you develop any new or concerning symptoms. Prescriptions: Metoclopramide HCl [Reglan 10 mg Tablet] 1 - 2 tab PO ASDIR PRN #25 tablet PRN Reason: Referrals: HERIBERTO WINTERS MD [Primary Care Provider] - Follow up as needed Scribe Attestation: 12/02/17 23:05 I personally performed the services described in the documentation, reviewed and edited the documentation which was dictated to the scribe in my presence, and it accurately records my words and actions. (ESTELLE MEJIA) Scribe Documentation - Scribe Written by Scribe:: Nasreen White, 12/02/2017 17:44 acting as scribe for :: Ruth <YE MEJÍA - Last Filed: 12/02/17 17:38>
[2017-12-02 19:30] VITALS: BP 142/80
== END 2017-12-02 19:48 | disposition home or self-care (01) ==
LOC: ER 15:10
DX: R11.2 Nausea with vomiting, unspecified (principal); R19.7 Diarrhea, unspecified; R50.9 Fever, unspecified; R10.9 Unspecified abdominal pain; R44.3 Hallucinations, unspecified; M54.5 Low back pain; I10 Essential (primary) hypertension; E11.9 Type 2 diabetes mellitus without complications
CPT/HCPCS: 99284; 96361; 96374; 96375; 36415; 83690; 84703; 85025; 80053; 81001; 74177; J3490; J1200; J2765; J7030

== ENCOUNTER 2018-09-13 21:59 | Emergency (ER) | payer MEDICAID ==
[2018-09-13 23:27] LABS: APPEARANCE,URINE CLEAR; BILIRUBIN,URINE NEGATIVE (NEGATIVE); COLOR,URINE YELLOW; GLUCOSE, URINE NEGATIVE (NEGATIVE); KETONES,URINE NEGATIVE (NEGATIVE); LEUKOCYTE ESTERASE,URINE NEGATIVE (NEGATIVE); NITRITE,URINE NEGATIVE (NEGATIVE); PROTEIN,URINE NEGATIVE (NEGATIVE); URINE SPECIFIC GRAVITY 1.028; UROBILINOGEN,URINE NEGATIVE mg/dL (<2.0)
[2018-09-13] MEDS ORDERED: LIDOCAINE 1% INJ-PF (10 MG/ML) 30 ML SDV INJ ONE (23:44)
[2018-09-13] MEDS ORDERED: AZITHROMYCIN 250 MG TABLET PO ONE (23:44)
[2018-09-13] MEDS ORDERED: CEFTRIAXONE INJ 250 MG VIAL IM ONE (23:44)
--- NOTE | 2018-09-13 23:55 | ER Document Report ---
HPI - HPI Time Seen by Provider: 09/13/18 22:58 Pain Level: 1 Notes: Patient is a 32-year-old female with no significant past medical history who presents the emergency department requesting treatment for possible exposure to an STD. Patient states that she was told by her partner that he was treated as a precautionary recently and told her to go get checked out. Patient states that she is here for the medicine and is going to the health department tomorrow otherwise. Patient states that she has no other symptoms to report. She is feeling well. Denies drug allergies. She is eating and drinking without difficulty. She is urinating normally and having normal bowel movements. She has not had any vaginal discharge, odor, or bleeding. Denies any headache, fever, neck pain, URI, sore throat, chest pain, palpitations, syncope, cough, shortness of breath, wheeze, dyspnea, abdominal pain, nausea/vomiting/diarrhea, urinary retention, dysuria, hematuria, back pain, or rash. Pt is currently on her menstrual cycle. - ROS Systems Reviewed and Negative: Yes All other systems reviewed and negative - CONSTITUTIONAL Constitutional: DENIES: Fever, Chills - REPRODUCTIVE Reproductive: DENIES: : Past Medical History - Social History Smoking Status: Never Smoker Chew tobacco use (# tins/day): No Frequency of alcohol use: None Drug Abuse: None Family History: CAD, DM, Hypertension Patient has suicidal ideation: No Patient has homicidal ideation: No - Past Medical History Cardiac Medical History: Reports: Hx Hypertension - no meds Denies: Hx Coronary Artery Disease, Hx Heart Attack, Hx Heart Murmur Pulmonary Medical History: Denies: Hx Asthma, Hx Bronchitis, Hx COPD, Hx Pneumonia Neurological Medical History: Denies: Hx Cerebrovascular Accident, Hx Seizures Endocrine Medical History: Reports: Hx Diabetes Mellitus Type 2. Denies: Hx Hyperthyroidism, Hx Hypothyroidism Renal/ Medical History: Reports: Hx Ovarian Cysts. Denies: Hx Peritoneal Dialysis, Hx Pelvic Inflammatory Disease Malignancy Medical History: Denies: Hx Breast Cancer, Hx Cervical Cancer, Hx Ovarian Cancer Musculoskeletal Medical History: Denies Hx Arthritis Past Surgical History: Reports: Hx Section, Hx Cholecystectomy, Hx Dilation and Curettage. Denies: Hx Hysterectomy - Immunizations Hx Diphtheria, Pertussis, Tetanus Vaccination: Yes Vertical Provider Document - CONSTITUTIONAL Agree With Documented VS: Yes Notes: PHYSICAL EXAMINATION: GENERAL: Well-appearing, well-nourished and in no acute distress. HEAD: Atraumatic, normocephalic. EYES: Pupils equal round and reactive to light, extraocular movements intact, sclera anicteric, conjunctiva are normal. ENT: Nares patent and without discharge. oropharynx clear without exudates. No tonsilar hypertrophy or erythema. Moist mucous membranes. NECK: Normal range of motion, supple without lymphadenopathy LUNGS: Breath sounds clear to auscultation bilaterally and equal. No wheezes rales or rhonchi. HEART: Regular rate and rhythm without murmurs, rubs, gallops. ABDOMEN: Soft, nontender, nondistended abdomen. No guarding, no rebound. No masses appreciated. Normal bowel sounds present. No CVA tenderness b ilaterally. : deferred NEUROLOGICAL: Normal speech, normal gait. PSYCH: Normal mood, normal affect. SKIN: Warm, Dry, normal turgor, no rashes or lesions noted. - INFECTION CONTROL TRAVEL OUTSIDE OF THE [place] IN LAST 30 DAYS: No Course - Re-evaluation Re-evalutation: 09/13/18 23:51 Patient is an afebrile, well-hydrated, 32-year-old female who presents emergency department for possible exposure to STD. Without significant tachycardia, tachypnea, or hypoxia. PE is otherwise unremarkable. Urinalysis was unremarkable. Chlamydia and gonorrhea tests are pending. Patient was given Rocephin and Zithromax. Patient's abdomen is soft and nontender. She is nontoxic-appearing and is tolerating p.o. without difficulty. No labs or imaging warranted otherwise. Low suspicion/risk for acute appendicitis, bowel obstruction, acute cholecystitis, acute cholangitis, perforated diverticulitis, incarcerated hernia, pancreatitis, perforated ulcer, peritonitis, sepsis, pelvic inflammatory disease, ectopic , tubo-ovarian abscess, ovarian torsion, or other systemic emergent condition at this time. Patient is aware that her condition can change from initial presentation and she needs to monitor symptoms closely and seek medical attention if any acute changes. Conservative measures otherwise for symptoms. Recheck with your PCM/health department in the next few days or as able. Return to the ED with any worsening/concerning symptoms otherwise as reviewed in discharge. Patient is in agreement. - Vital Signs Vital signs: Temp Pulse Resp BP Pulse Ox 98.2 F 79 18 126/82 H 98 09/13/18 22:29 09/13/18 22:29 09/13/18 22:29 09/13/18 22:29 09/13/18 22:29 - Laboratory Laboratory results interpreted by me: 09/13/18 22:55 Urine Blood LARGE H Urine Ascorbic Acid 20 H Discharge - Discharge Clinical Impression: Possible exposure to STD Condition: Stable Disposition: HOME, SELF-CARE Additional Instructions: Maintain fluid intake Proper hygienic technique Keep the skin clean Safe sexual practices with condoms everytime Tylenol/ibuprofen as needed Check in with the health department this week for further testing if warranted Your chlamydia/Ghon test are pending and you will be notified if positive result s; you may call in 1 day for the results as well F/u with your PCM/OBGYN in 2-3 days for a recheck Return to the ED with any development of SIM/fever, trouble with vision, eye redness, worsening pain, urethral discharge, urinary retention, blood in the urine, flank pain, abdominal pain, n/v, Chest Pain, shortness of breath, joint pains, trouble breathing, or any other worsening/concerning symptoms as needed otherwise. Forms: Elevated Blood Pressure Referrals: HERIBERTO WINTERS MD [Primary Care Provider] - Follow up as needed [facility] [NO LOCAL MD] - Follow up as needed
[2018-09-14 00:43] VITALS: BP 145/85
[2018-09-14 01:29] LABS: CHLAM PCR NOT DETECTED (NOT DETECT); GON PCR NOT DETECTED (NOT DETECT)
== END 2018-09-14 00:45 | disposition home or self-care (01) ==
LOC: ER 21:59
DX: Z20.2 Contact with and (suspected) exposure to infections with a predominantly sexual mode of transmission (principal)
CPT/HCPCS: 99283; 96372; 81025; 81001; 87491; 87591; Q0144; J3490; J0696; 36415